=== PATIENT | male | born 1970 | race Caucasian/White ===

== ENCOUNTER 2021-08-15 14:50 | Inpatient (IN) | payer MEDICAID, SELFPAY ==
[2021-08-15] VITALS (25 sets, daily range): BP systolic 112–147; BP diastolic 66–99; PULSE 115–135; RESP 15–31; TEMP 37–37.7; O2SAT 95–98; BMI 29.2
--- NOTE | ~2021-08-15 | XR_ITS ---
EXAMINATION: XR surgery orthopedic EXAM DATE: 08/17/2021 13:40 INDICATION: Right foot osteomyelitis. TECHNIQUE: Fluoroscopy used during right foot surgery performed by Dr. Leighton Bentley JR MD. Rad iologist was not present for the imaging or procedure. Total fluoroscopic time of 2 seconds. The DA P for this procedure was 0.23 cGycm2. A total of 2 images sent to PACS from the exam. Correlation is made to right foot x-ray 08/16. FINDINGS: Status post right 5th metatarsal head and neck amputation. Correlate with procedure note. IMPRESSION: Fluoroscopy used during right foot surgery. Reviewed, dictated and finalized at location B.
--- NOTE | ~2021-08-15 | US_ITS ---
EXAMINATION: US art doppler w press LE DATE: 08/18/2021 14:14 INDICATION: Right foot ulcer. TECHNIQUE: Segmental pressures and plethysmographic and Doppler waveforms of the brachial and lower e xtremity arteries were obtained. COMPARISON: None. FINDINGS: Right and left brachial artery pressures of 139 mm Hg and 143 mm Hg, respectively, are concordant (no rmal difference <= 30 mmHg). The right low-thigh pressure index is 1.32. The right ankle-brachial index (BECKI) is 1.08 (normal >= 0 .9-1.0). The right great toe-brachial index (TBI) is 0.55 (normal >= 0.65). The right lower extremity segmental pressure gradients are normal (normal gradients <= 20-30 mmHg between adjacent levels on t he same leg or the same levels on the two legs). Arterial Doppler waveforms are at least triphasic fr om common femoral artery to popliteal artery and biphasic at the ankle. The left high-thigh pressure index is 1.13. The left BECKI is 1.02. The left TBI is 0.62. The left lowe r extremity segmental pressure gradients are normal. Arterial Doppler waveforms are at least triphasi c in common femoral artery and superficial femoral artery, biphasic in popliteal artery and dorsalis pedis, and triphasic in posterior tibial artery. IMPRESSION: 1. Decreased TBIs and normal ABIs, consistent with arterial occlusive disease. Reviewed, dictated and finalized at location A.
--- NOTE | ~2021-08-15 | MR_ITS ---
EXAMINATION: MR foot RT wo con DATE: 08/16/2021 15:04 INDICATION: Osteomyelitis TECHNIQUE: Magnetic resonance imaging (MRI) of the right fore/mid foot was performed without intraven ous contrast. Sequences included sagittal T1-weighted FSE, sagittal fluid sensitive FSE STIR, coronal PD-weighted FS FSE, coronal T1-weighted FSE, axial PD-weighted FS FSE, and axial PD-weighted FSE. COMPARISON: None FINDINGS: Skin wounds/ulcerations dorsal, lateral and plantar to the head of the fifth metatarsal. There is inc reased T2 signal with corresponding geographic of T1 marrow fat signal at the head and neck of the fi fth metatarsal with cortical erosion evident on the prior radiograph consistent with osteomyelitis. T here is marrow edema at the fifth proximal phalanx with minimal loss of T1 fat signal at the lateral rim of the base of the proximal phalanx also a suggestion of cortical erosion on the prior radiograph s consistent with less advanced osteomyelitis. Additional minimal increased fluid signal at the head of the fourth metatarsal but without loss of T1 fat signal or appreciable erosion on the current radi ograph and favor reactive edema over additional early osteomyelitis. Small low signal intensity likel y bone island at the base of the third proximal phalanx. Mild polyarticular osteoarthritis at the fir st metatarsophalangeal and multiple tarsometatarsal and interphalangeal joints. There is secondary mi ld subarticular cystic change at the dorsolateral margin of the distal articular surface of the later al cuneiform. No fracture. Soft tissue edema about the distal fifth metatarsal and along the dorsal s ubcutaneous tissues of the forefoot. Physiologic amount fluid in the joint spaces. No abscess. IMPRESSION: 1. Osteomyelitis of the head and neck of the fifth metatarsal and less advanced at the base of the fi fth proximal phalanx. 2. Minimal marrow edema at the head of the fourth metatarsal and favor reactive edema over additional very early osteomyelitis. Reviewed, dictated and finalized at location A. IMPRESSION: 1. Osteomyelitis of the head and neck of the fifth metatarsal and less advanced at the base of the fifth proximal phalanx. 2. Minimal marrow edema at the head of the fourth metatarsal and favor reactive edema over additional very early osteomyelitis.
--- NOTE | ~2021-08-15 | XR_ITS ---
EXAMINATION: XR chest PICC line EXAM DATE: 08/24/2021 12:40 INDICATION: Right-sided PICC line placement. TECHNIQUE: Portable AP frontal chest x-ray was obtained. Comparison is made to prior examination from 08/15/2021. FINDINGS: There is a right-sided PICC line with tip projecting over the inferior aspect SVC, adequate . Compared to prior study, development of some prominent right lung interstitial markings, could be mild edema or infection. No confluent consolidation, pneumothorax or pleural effusion suspected. The cardiomediastinal silhouette is prominent but magnified on this AP technique. There are no osseous ab normalities identified. IMPRESSION: Development of some prominent right-sided lung reticulation, could be mild edema. Develop ing interstitial pneumonia not excludable. Reviewed, dictated and finalized at location A. IMPRESSION: Development of some prominent right-sided lung reticulation, could be mild edema. Developing interstitial pneumonia not excludable.
--- NOTE | ~2021-08-15 | XR_ITS ---
EXAMINATION: XR foot RT min 3V DATE: 08/15/2021 17:43 INDICATION: Lateral right foot wound with associated pain, erythema and swelling TECHNIQUE: Dorsoplantar, two oblique and lateral views of the right foot were obtained. COMPARISON: None. FINDINGS: Soft tissue swelling and subcutaneous gas at the lateral aspect of the right forefoot about the regio n of the head of the fifth metatarsal. There appears to be cortical erosions at the plantar aspect of the head of the fifth metacarpal and at the dorsolateral rim of the base of the fifth proximal phala nx suspicious for osteomyelitis. Bone alignment is normal. No fracture. Small Achilles and plantar ca lcaneal spurs. IMPRESSION: 1. Cortical erosions at the head of the fifth metatarsal and base of the fifth proximal phalanx with surrounding soft tissue gas and swelling suspicious for osteomyelitis. Reviewed, dictated and finalized at location A. IMPRESSION: 1. Cortical erosions at the head of the fifth metatarsal and base of the fifth proximal phalanx with surrounding soft tissue gas and swelling suspicious for o steomyelitis.
--- NOTE | ~2021-08-15 | US_ITS ---
EXAMINATION: US venous doppler LE RT EXAM DATE: 08/16/2021 08:08 INDICATION: Right leg edema. TECHNIQUE: Multiple grayscale, color flow and Doppler images of the right lower extremity deep venous system were obtained and reviewed. There is no prior study for comparison. FINDINGS: The right common femoral, femoral and profunda veins demonstrate normal color flow, respira tory variation, augmentation and compressibility. Compressibility, color flow confirmed within the r ight popliteal, posterior tibial, peroneal, and greater saphenous veins. IMPRESSION: 1. No right lower extremity deep venous thrombosis. Reviewed, dictated and finalized at location B.
--- NOTE | ~2021-08-15 | XR_ITS ---
EXAMINATION: XR chest 1V portable DATE: 08/15/2021 17:42 INDICATION: Cough and shortness of breath. TECHNIQUE: frontal view of the chest was obtained. COMPARISON: Chest radiograph dated 04/20/17 FINDINGS: The lungs remain clear with no focal airspace opacities, pulmonary edema, pleural effusion or pneumot horax. The cardiomediastinal silhouette is normal. Mild thoracic spondylosis. IMPRESSION: 1. No acute cardiopulmonary disease. Reviewed, dictated and finalized at location A.
--- NOTE | 2021-08-15 14:58 | ECG_ITS ---
Measurements Intervals [place] Rate: 130 P: 70 [place]: 148 QRS: 74 QRSD: 74 T: 59 QT: 298 QTc: 438 Interpretive Statements SINUS TACHYCARDIA BASELINE ARTIFACT- I, AVL ABNORMAL ECG Electronically Signed On 08-15-2021 15:05:29 CDT by Shashi Martin D.O.
--- NOTE | 2021-08-15 17:43 | ED.GENADULT ---
HPI - General Adult General Chief complaint: Dizziness Stated complaint: Lightheaded/Dizzy Time Seen by Provider: 08/15/21 17:19 History of Present Illness HPI narrative: Patient is a 51-year-old gentleman who presents the emergency department with chief complaint of feeling lightheaded. Patient states that today he started feeling very lightheaded as though he was in a pass out patient reports his heart rate still fast in the 120s denies fever but states that he has had a wound on his right foot that he has been treating by himself patient states he has been doing soaks but has noticed that the wound has been slowly healing but today noticed that his foot is red tender and has a malodorous smell coming from it. Patient denies history of diabetes Related Data Home Medications Medication Instructions Recorded Confirmed No Home Medications 08/15/21 08/15/21 Allergies Allergy/AdvReac Type Severity Reaction Status Date / Time Penicillins Allergy Unknown Hives Verified 08/15/21 17:32 Review of Systems Review of Systems: A 10 system review of systems was completed on the patient and is negative except for what is stated in the HPI. Nursing and ancillary documentation was reviewed. Exam Narrative: GENERAL: Well-appearing, well-nourished, and in no acute distress. HEAD: Normocephalic, atraumatic. EYES: PERRLA and EOMI. ENT: Nares clear, no rhinorrhea or epistaxis. Mucous membranes moist. NECK: Supple. CHEST: Clear to auscultation. No respiratory distress. HEART: Regular rate and rhythm. No murmur heard. Normal peripheral pulses. ABDOMEN: Soft, nontender, nondistended, normal active bowel sounds. EXTREMITIES: Normal range of motion. +1 edema. There is erythema present on the dorsum of the right foot there is an ulceration on the lateral aspect of the right foot with a malodorous smell coming from it SKIN: Warm, dry, no rash. NEURO: No focal deficits. Alert and oriented x3. PSYCH: Normal mood and affect. Course Vital Signs Vital signs: Vital Signs Temperature 37.0 C 08/15/21 14:56 Pulse Rate 129 H 08/15/21 14:56 Respiratory Rate 18 08/15/21 14:56 Blood Pressure 141/76 H 08/15/21 14:56 Pulse Oximetry 97 08/15/21 14:56 Temperature 37.0 C 08/15/21 14:56 Pulse Rate 122 H 08/15/21 17:25 Respiratory Rate 17 08/15/21 17:25 Blood Pressure 147/69 H 08/15/21 17:25 Pulse Oximetry 97 08/15/21 17:25 Medical Decision Making Vital Signs Vital Signs: Vital Signs Temperature 37.0 C 08/15/21 14:56 Pulse Rate 129 H 08/15/21 14:56 Respiratory Rate 18 08/15/21 14:56 Blood Pressure 141/76 H 08/15/21 14:56 Pulse Oximetry 97 08/15/21 14:56 Temperature 37.0 C 08/15/21 14:56 Pulse Rate 122 H 08/15/21 17:25 Respiratory Rate 17 08/15/21 17:25 Blood Pressure 147/69 H 08/15/21 17:25 Pulse Oximetry 97 08/15/21 17:25 Lab Data Result diagrams: 08/15/21 18:22 08/15/21 18:02 Labs: Lab Results 08/15/21 08/15/21 08/15/21 Range/Units 18:02 18:02 18:22 WBC 22.9 H (4.5-10.0) K/mm3 RBC 4.86 (4.6-6.20) M/mm3 Hgb 15.0 (14.0-18.0) g/dL Hct 44.6 (42.0-52.0) % MCV 91.8 (80-100) fl MCH 30.9 (26-34) pg MCHC 33.6 (32-36) g/dl RDW 12.3 (11.5-14.5) % Plt Count 140 L (150-375) k/mm3 MPV 10.5 H (7.4-10.4) fl Immature Gran % (Auto) 0.8 H (0-0.5) % Neut % (Auto) 87.5 H (45.5-73.1) % Lymph % (Auto) 3.6 L (18.3-44.2) % [place] % (Auto) 7.9 (2.6-8.5) % Eos % (Auto) 0.0 (0-4.4) % Baso % (Auto) 0.2 (0.2-1.2) % Lymph # (Auto) 0.83 L (0.9-3.2) K/mm3 [place] # (Auto) 1.8 H (0.1-0.6) K/mm3 Eos # (Auto) 0.0 (0-0.3) K/mm3 Baso # (Auto) 0.1 (0.0-0.1) K/mm3 Abs Immat Gran (auto) 0.19 H (0.00-0.031) K/mm3 Absolute Neuts (auto) 20.0 H (1.3-6.7) K/mm3 Absolute Nucleated RBC 0.0 (0.0-0.012) K/mm3 Nucleated RBC % 0.0 (0.0-0.2) % % Immature Plt Fraction
[2021-08-15 18:27] LABS: Alanine Aminotransferase 26 U/L (4-50); Albumin Level 4.1 g/dL (3.5-5.1); Alkaline Phosphatase 99 U/L (38-126); Anion Gap 14 mmol/L (8-16); Aspartate Amino Transferase 26 U/L (17-59); Bilirubin,Total 1.2 mg/dL (0.2-1.3); Blood Urea Nitrogen 13 mg/dL (9-20); Calcium 8.7 mg/dL (8.4-10.2); Carbon Dioxide 19 mmol/L (22-30); Chloride 99 mmol/L (98-107); Estimated CRCL calculation 97 ml/min; Estimated Glomerular Filt Rate > 60; Glucose 137 mg/dL (65-110); Potassium 3.8 mmol/L (3.4-5.0); Sodium 132 mmol/L (137-145)
[2021-08-15 18:33] LABS: Basophils Absolute Auto 0.1 K/mm3 (0.0-0.1); Basophils Percent Auto 0.2 % (0.2-1.2); Hematocrit 44.6 % (42.0-52.0); Immature Granulocyte Absolute 0.19 K/mm3 (0.00-0.031); Immature Granulocyte Percent A 0.8 % (0-0.5); Lymphocytes Absolute Auto 0.83 K/mm3 (0.9-3.2); Lymphocytes Percent Auto 3.6 % (18.3-44.2); Mean Corpuscular HGB Conc 33.6 g/dl (32-36); Mean Corpuscular Hemoglobin 30.9 pg (26-34); Mean Corpuscular Volume 91.8 fl (80-100); Mean Platelet Volume 10.5 fl (7.4-10.4); Monocytes Absolute Auto 1.8 K/mm3 (0.1-0.6); Monocytes Percent Auto 7.9 % (2.6-8.5); Neutrophils Percent Auto 87.5 % (45.5-73.1); Platelet Count Result 140 k/mm3 (150-375); Red Blood Count 4.86 M/mm3 (4.6-6.20); Red Cell Distribution Width 12.3 % (11.5-14.5); White Blood Count 22.9 K/mm3 (4.5-10.0)
[2021-08-15] MEDS: SODIUM CHLORIDE 0.9% IV 1,000 ML 999 ML IV CONT ×2 (18:39→19:53)
[2021-08-15] MEDS: metroNIDAZOLE 500 MG/ISO 100ML 500 MG/100 ML BAG 100 MG IVPB (18:39)
[2021-08-15 18:41] LABS: Lactic Acid Reflex 1.2 mmol/L (0.7-2.1)
[2021-08-15 18:58] LABS: INR 1.1; Partial Thromboplastin Time 32.7 SECONDS (22.3-36.8); Prothrombin Time 14.2 Seconds (11.1-14.7)
[2021-08-15 19:00] LABS: CRP 18.2 mg/dL (<1.0)
[2021-08-15 19:12] LABS: Erythrocyte Sedimentation Rate 22 mm/hr (0-20)
--- NOTE | 2021-08-15 21:00 | PM.IMHP ---
H&P: HPI History of Present Illness Date/Time: 08/15/21 21:00 Chief Complaint: Lightheadedness. Narrative: This is a 51-year-old male with no significant medical history who presented to the emergency department earlier today for evaluation of lightheadedness. He was in his usual state of health when he got up this morning and sometime this afternoon while at work he suddenly started to feel bad with generalized malaise and dizziness as though he may pass out. He was also having feelings of racing heart. He was afebrile on arrival to the emergency department, was tachycardic, and had a white blood cell count of 22.9. With further questioning he does mention having a wound on his right foot that has been present for several months. He does not recall exactly what happened to it but he thinks it was due to a previous job he had where he was on his feet working for 12 hours a day which caused him to developed a callus which ?split.? He has been keeping the wound clean and has been applying Neosporin daily with reported improvement although over the last 3 days or so he has developed redness and swelling as well as increased drainage. X-ray of the foot showed erosions of the 5th metatarsal head and the base of the 5th proximal phalanx with surrounding soft tissue gas and swelling suspicious for osteomyelitis. No known history of drug-resistant organisms. Again he does not recall any injury to the area and denies puncture wound. He has not had a fever. No nausea or vomiting. Review of Systems Review of Systems: Twelve systems were reviewed with pertinent positives and negatives as per HPI. No cold or flu symptoms. Patient has lost quite a bit of weight since his from heart disease as he is trying to get healthy. He denies chest pain, pleuritic pain, and shortness of breath. No vomiting, diarrhea, or dysuria. No history of diabetes or venous thromboembolism. Except as documented, all other systems were reviewed and are negative. [facility] Past Medical History Medical History (Updated 08/15/21 @ 21:29 by Damaris Solis PA-C) Seasonal allergies Surgical History Surgical History (Updated 08/15/21 @ 21:31 by Damaris Solis PA-C) History of appendectomy (1978) History of surgical removal of ganglion cyst (2000) Right wrist. Family History Family History (Updated 08/15/21 @ 21:30 by Damaris Solis PA-C) Mother Peripheral vascular disease Father Benign brain tumor Sibling Systemic lupus erythematosus Social History Social History (Updated 08/15/21 @ 21:32 by Damaris Solis PA-C) Social History: The patient is and has 1 daughter. He recently purchased a home with his sister. Works for a local [employer]. He smoked about a half a pack of cigarettes a day and quit in 2019. No illicit substance use. Drinks alcohol socially in moderation. He designates his sister, Denise landrum, as his surrogate decision maker. Code status: Full code. Meds Home Medications and Allergies Home Medications Medication Instructions Recorded Confirmed Type No Home Medications 08/15/21 08/15/21 History Allergies Allergy/AdvReac Type Severity Reaction Status Date / Time Penicillins Allergy Unknown Hives Verified 08/15/21 17:32 Vital Signs Vital Signs - 24 hr 08/15/21 14:56 08/15/21 17:05 08/15/21 17:24 Temperature 98.6 F Pulse Rate 129 H 118 H 126 H Respiratory Rate 18 18 Blood Pressure 141/76 H 132/70 Pulse Oximetry 97 96 97 08/15/21 17:25 08/15/21 17:30 08/15/21 17:31 Temperature Pulse Rate 122 H 123 H 120 H Respiratory Rate 17 24 H 19 Blood Pressure 147/69 H 143/75 H Pulse Oximetry 97 96 98 08/15/21 17:45 08/15/21 17:46 08/15/21 18:00 Temperature Pulse Rate 127 H 126 H 119 H Respiratory Rate 16 18 15 Blood Pressure 112/99 H Pulse Oximetry 95 08/15/21 18:15 08/15/21 18:30 08/15/21 18:45 Temperature Pulse Rate 115 H 118 H 120 H Respiratory Rate 17
[2021-08-15] MEDS: SODIUM CHLORIDE 0.9% IV 1,000 ML 80 ML IV CONT (22:24)
[2021-08-16] VITALS (12 sets, daily range): BP systolic 104–133; BP diastolic 62–73; PULSE 87–131; RESP 14–20; TEMP 36.6–37.5; O2SAT 95–98
[2021-08-16] MEDS: ALBUTEROL SULFATE NEB 2.5 MG/3 ML INH INHALATION (00:52)
[2021-08-16 06:23] LABS: Basophils Percent Auto 0.4 % (0.2-1.2); Eosinophils Percent Auto 0.4 % (0-4.4); Hematocrit 40.5 % (42.0-52.0); Hemoglobin 13.3 g/dL (14.0-18.0); Immature Granulocyte Absolute 0.07 K/mm3 (0.00-0.031); Immature Granulocyte Percent A 0.6 % (0-0.5); Immature Platelet Fraction Pct 5.6 % (0.9-11.2); Lymphocytes Absolute Auto 0.92 K/mm3 (0.9-3.2); Lymphocytes Percent Auto 8.1 % (18.3-44.2); Mean Corpuscular HGB Conc 32.8 g/dl (32-36); Mean Corpuscular Hemoglobin 30.6 pg (26-34); Mean Corpuscular Volume 93.3 fl (80-100); Mean Platelet Volume 10.6 fl (7.4-10.4); Monocytes Absolute Auto 1.2 K/mm3 (0.1-0.6); Monocytes Percent Auto 10.3 % (2.6-8.5); Neutrophils Absolute Auto 9.2 K/mm3 (1.3-6.7); Neutrophils Percent Auto 80.2 % (45.5-73.1); Platelet Count Result 99 k/mm3 (150-375); Red Blood Count 4.34 M/mm3 (4.6-6.20); Red Cell Distribution Width 12.1 % (11.5-14.5); White Blood Count 11.4 K/mm3 (4.5-10.0)
[2021-08-16 06:35] LABS: Anion Gap 8 mmol/L (8-16); Blood Urea Nitrogen 10 mg/dL (9-20); Calcium 8.1 mg/dL (8.4-10.2); Carbon Dioxide 23 mmol/L (22-30); Chloride 104 mmol/L (98-107); Estimated CRCL calculation 112 ml/min; Estimated Glomerular Filt Rate > 60; Glucose 112 mg/dL (65-110); Potassium 3.5 mmol/L (3.4-5.0); Sodium 135 mmol/L (137-145)
[2021-08-16] MEDS: LORATADINE 10 MG TABLET PO (11:11)
--- NOTE | 2021-08-16 14:08 | PM.IMPN ---
Progress Note: A&P Assessment and Plan (1) Acute osteomyelitis of right foot: Code(s): M86.171 - Other acute osteomyelitis, right ankle and foot Status: Acute Assessment and Plan: worsening wound on his right lateral foot cellulitis and probable underlying osteomyelitis of the head of the 5th metatarsal and the base of the 5th proximal phalanx. Foot xray showed probable osteomyelitis vancomycin and cefepime, pending culture. Dr. Bentley, podiatry, has been consulted thank you for your recommendations Surgical procedure scheduled for tomorrow Continue to monitor (2) Sepsis: Qualifiers: Sepsis acute organ dysfunction status: without acute organ dysfunction Sepsis type: sepsis due to unspecified organism Qualified Code(s): A41.9 - Sepsis, unspecified organism Code(s): A41.9 - Sepsis, unspecified organism Status: Acute Assessment and Plan: Meets sepsis criteria with tachycardia and leukocytosis in the setting of underlying infection of the right foot. Lactic acid levels within normal limits. Blood pressures are stable. Wound and blood cultures have been obtained and are pending. IV antibiotics With blood cell count 11.4 today Trend labs Labs in a.m. (3) Cellulitis of foot, right: Code(s): L03.115 - Cellulitis of right lower limb Status: Acute Assessment and Plan: See above (4) Allergies: Code(s): T78.40XA - Allergy, unspecified, initial encounter Status: Acute Assessment and Plan: Continue home Claritin Time Spent With Patient Time with patient: Greater than 35 minutes Subjective Date/time seen: 08/16/21 10:30 Interval history: Patient is a 51-year-old male who is here for osteomyelitis of the right foot. Patient stated that he feels okay today. He is unable to really walk on his right foot. He did state that he did have a job sitting behind a desk and never really got up. 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 He states that his job is what caused his foot to break open. He stated that it has been broken for 3-4 days. He has been trying to clean up however is not been sufficient. His leg is swollen and red all the way up to mid calf. Podiatry is on the case and is going to take the patient to surgery tomorrow. Review of Systems Review of Systems: All systems reviewed & are unremarkable except as noted in HPI and below Exam Const: General: cooperative, healthy appearing, comfortable, no acute distress, well developed, alert, awake, ill appearing and tired appearing Nutritional Appearance: well nourished Orientation/consciousness: oriented to person, oriented to place, oriented to time and patient oriented x3 Limitations: physical limitations HENMT: Head: normal to inspection Ears: hearing grossly normal bilaterally General nose exam: Normal external nose present Mouth: Yes Normal oral and palatal mucosa present, Yes lip normal and Yes tongue normal Teeth and gingiva: abnormal tooth and associated gingiva and poor dentition Eyes: General: appearance normal, both eyes and all related structures Neck: Neck: normal visual inspection, full ROM, trachea midline and supple Chest: Chest palpation & inspection: normal inspection of the chest Resp: Effort & Inspection: normal respiratory effort and able to speak in complete sentences Auscultation: clear to auscultation bilaterally Cardio: Jugular venous distension: no JVD Rate: regular rate Rhythm: regular rhythm Heart sounds: S1 normal heart sound present and S2 normal heart sound present Peripheral pulses: Peripheral pulses 2+ throughout GI: Inspection: normal to inspection GI Palp: Yes Soft to palpation and No Tenderness to palpation present (GI) Auscultation: normal bowel sounds Skin: General skin exam: normal color and no rashes or lesions noted Lesions: lesion noted (Plantar side
--- NOTE | 2021-08-16 15:33 | PC.NURSE ---
On 08/16/21, the student, [Katya Mir ], provided care and completed [facility] documentation on this patient. I have reviewed the student's documentation and agree with the findings.
[2021-08-16] MEDS: MUPIROCIN 2% OINT 22 GM TUBE 1 APPLIC TOPICAL (16:15)
[2021-08-16] MEDS: SODIUM CHLORIDE 0.9% IV 1,000 ML 80 ML IV CONT (17:38)
[2021-08-16] MEDS: ACETAMINOPHEN 500 MG TABLET 1000 MG PO (18:53)
--- NOTE | 2021-08-16 19:51 | WPDCN ---
Assessment and Plan Assessment and plan (1) Acute osteomyelitis of right foot: Code(s): M86.171 - Other acute osteomyelitis, right ankle and foot Status: Acute Assessment and Plan: MRI indicates osteomyelitis of distal fifth metatarsal possibly involving proximal phalanx. Continue with IV abx, will require infectious disease consult for abx management upon discharge I will take to the OR 08/17/21 12:30pm for Partial 5th ray resection with pulse lavage and PMMA antibiotic bead packing, the wound will be left open plantarly for daily packing and allow for drainage. Will take deep wound culture swabs Will continue to follow until discharged (2) Cellulitis of foot, right: Code(s): L03.115 - Cellulitis of right lower limb Status: Acute (3) Leukocytosis: Qualifiers: Leukocytosis type: unspecified Qualified Code(s): D72.829 - Elevated white blood cell count, unspecified Code(s): D72.829 - Elevated white blood cell count, unspecified Status: Acute (4) Sepsis: Qualifiers: Sepsis acute organ dysfunction status: without acute organ dysfunction Sepsis type: sepsis due to unspecified organism Qualified Code(s): A41.9 - Sepsis, unspecified organism Code(s): A41.9 - Sepsis, unspecified organism Status: Acute HPI Data of Consult Date/Time: 08/16/21 19:51 Requesting Physician: Julissa Boone MD Primary Care Provider: [employer] PHYSICIAN Consult Narrative Narrative: Hipolito Barney is a 51 year old male with no significant medical history who presented to the emergency department 08/15/21 for evaluation of lightheadedness and heart racing . He woke up feeling normal in the morning and sometime in the afternoon while at work he suddenly started to feel bad with generalized malaise and dizziness as though he may pass out. He was afebrile on arrival to the emergency department, was tachycardic, and had a white blood cell count of 22.9. With further questioning he does mention having a wound on his right foot that has been present for several months. He does not recall exactly what happened to it but he thinks it was due to a previous job he had where he was on his feet working for 12 hours a day which caused him to developed an opne sore to his foot that never healed. He has been keeping the wound clean and has been applying Neosporin daily with reported improvement although over the last 3 days or so he has developed redness and swelling as well as increased drainage. No prior foot wounds, denies diabetes, denies numbness to his feet. . No known history of drug-resistant organisms. He has not had a fever. No nausea or vomiting. Review of Systems Review of Systems: All systems reviewed & are unremarkable except as noted in HPI and below (chart.) [facility] Past Medical History Medical History (Updated 08/16/21 @ 14:17 by DUANE Steiner) Seasonal allergies Surgical History Surgical History (Updated 08/15/21 @ 21:31 by Damaris Solis PA-C) History of appendectomy (1978) History of surgical removal of ganglion cyst (2000) Right wrist. Family History Family History (Updated 08/15/21 @ 21:30 by Damaris Solis PA-C) Mother Peripheral vascular disease Father Benign brain tumor Sibling Systemic lupus erythematosus Social History Social History Social History: The patient is and has 1 daughter. He recently purchased a home with his sister. Works for a local [employer]. He smoked about a half a pack of cigarettes a day and quit in 2019. No illicit substance use. Drinks alcohol socially in moderation. He designates his sister, Denise landrum, as his surrogate decision maker. Code status: Full code. Smoking status: Former smoker Smoking end date: 07/27/20 Alcohol intake: current Substance use: never Substance use type: does not use Spiritual care concerns:
[2021-08-17] VITALS (16 sets, daily range): BP systolic 110–171; BP diastolic 60–104; PULSE 80–134; RESP 16–24; TEMP 36.3–38.1; O2SAT 94–100
[2021-08-17] MEDS: CYCLOBENZAPRINE HCL 5 MG TABLET PO ×2 (04:23→15:29)
[2021-08-17] MEDS: ACETAMINOPHEN 500 MG TABLET 1000 MG PO ×2 (05:01→18:58)
[2021-08-17] MEDS: SODIUM CHLORIDE 0.9% IV 1,000 ML 80 ML IV CONT (05:02)
[2021-08-17 06:45] LABS: Basophils Percent Auto 0.3 % (0.2-1.2); Eosinophils Absolute Auto 0.1 K/mm3 (0-0.3); Eosinophils Percent Auto 0.5 % (0-4.4); Hematocrit 39.3 % (42.0-52.0); Hemoglobin 13.1 g/dL (14.0-18.0); Immature Granulocyte Absolute 0.04 K/mm3 (0.00-0.031); Immature Granulocyte Percent A 0.4 % (0-0.5); Immature Platelet Fraction Pct 5.3 % (0.9-11.2); Lymphocytes Absolute Auto 0.78 K/mm3 (0.9-3.2); Lymphocytes Percent Auto 6.9 % (18.3-44.2); Mean Corpuscular HGB Conc 33.3 g/dl (32-36); Mean Corpuscular Hemoglobin 30.8 pg (26-34); Mean Corpuscular Volume 92.3 fl (80-100); Monocytes Percent Auto 8.6 % (2.6-8.5); Neutrophils Absolute Auto 9.5 K/mm3 (1.3-6.7); Neutrophils Percent Auto 83.3 % (45.5-73.1); Platelet Count Result 106 k/mm3 (150-375); Red Blood Count 4.26 M/mm3 (4.6-6.20); Red Cell Distribution Width 12.3 % (11.5-14.5); White Blood Count 11.3 K/mm3 (4.5-10.0)
[2021-08-17 07:02] LABS: Alanine Aminotransferase 34 U/L (4-50); Albumin Level 3.4 g/dL (3.5-5.1); Alkaline Phosphatase 78 U/L (38-126); Anion Gap 8 mmol/L (8-16); Aspartate Amino Transferase 34 U/L (17-59); Bilirubin,Total 0.8 mg/dL (0.2-1.3); Blood Urea Nitrogen 11 mg/dL (9-20); Calcium 8.6 mg/dL (8.4-10.2); Carbon Dioxide 24 mmol/L (22-30); Chloride 106 mmol/L (98-107); Estimated CRCL calculation 112 ml/min; Estimated Glomerular Filt Rate > 60; Glucose 115 mg/dL (65-110); Magnesium 2.1 mg/dL (1.6-2.3); Potassium 3.6 mmol/L (3.4-5.0); Sodium 138 mmol/L (137-145)
--- NOTE | 2021-08-17 08:16 | P.PNIM_ITS ---
Progress Note: A&P Assessment and Plan (1) Acute osteomyelitis of right foot: Code(s): M86.171 - Other acute osteomyelitis, right ankle and foot Status: Inactive Assessment and Plan: * worsening wound on his right lateral foot * cellulitis and probable underlying osteomyelitis of the head of the 5th metatarsal and the base of the 5th proximal phalanx. * Foot xray showed probable osteomyelitis * vancomycin and cefepime * Wound cultures show no growth * Blood cultures NGTD repeated * Dr. Bentley, podiatry, has been consulted thank you for your recommendations * Surgical procedure scheduled for today * Continue to monitor * ID consult * PT and OT (2) Sepsis: Qualifiers: Sepsis acute organ dysfunction status: without acute organ dysfunction Sepsis type: sepsis due to unspecified organism Qualified Code(s): A41.9 - Sepsis, unspecified organism Code(s): A41.9 - Sepsis, unspecified organism Status: Inactive Assessment and Plan: * Meets sepsis criteria with tachycardia and leukocytosis in the setting of underlying infection of the right foot. * Lactic acid levels within normal limits. * Blood pressures are stable. * Wound culture shows no growth * blood cultures NGTD repeated * IV antibiotics * With blood cell count 11.3 today * Trend labs * Labs in a.m. (3) Cellulitis of foot, right: Code(s): L03.115 - Cellulitis of right lower limb Status: Acute Assessment and Plan: * See above (4) Allergies: Code(s): T78.40XA - Allergy, unspecified, initial encounter Status: Acute Assessment and Plan: * Continue home Claritin (5) Elevated temperature: Code(s): R50.9 - Fever, unspecified Status: Acute Assessment and Plan: * Temp this am is 100.5 * repeat blood cultures * Known infection in leg * Tylenol PRN for high fevers (6) Leukocytosis: Qualifiers: Leukocytosis type: unspecified Qualified Code(s): D72.829 - Elevated white blood cell count, unspecified Code(s): D72.829 - Elevated white blood cell count, unspecified Status: Acute Assessment and Plan: * white blood cell count at admission was 22.9 * white blood cell count trending down and 11.3 today * known source of infection of the right foot * IV antibiotics * blood cultures pending * trend labs * labs in a.m. (7) Back spasm: Code(s): M62.830 - Muscle spasm of back Status: Acute Assessment and Plan: * Complaints of pain and uncomfort of the bed * Flexiril added 5mg PO Q8HR prn (8) Hypertension: Code(s): I10 - Essential (primary) hypertension Status: Acute Assessment and Plan: * Last blood pressure was 171/104 * Could be pain induced * Hydralazine 10mg IV Q4hr PRN * Trend blood pressure * Adjust medications as needed Subjective Date/time seen: 08/17/21 08:16 Interval history: Patient is a 51-year-old male who is here for osteomyelitis of the right foot. patient stated that he has been having diarrhea about 6 times yesterday and times today. He also stated that he has been very uncomfortable because of bed to the point to where he can not get a deep breath. Overnight he had the nurses get him up to the chair and received a muscle relaxer which helped him good decent sleep. When he woke up though he
--- NOTE | 2021-08-17 08:16 | PM.IMPN ---
Progress Note: A&P Assessment and Plan (1) Acute osteomyelitis of right foot: Code(s): M86.171 - Other acute osteomyelitis, right ankle and foot Status: Inactive Assessment and Plan: worsening wound on his right lateral foot cellulitis and probable underlying osteomyelitis of the head of the 5th metatarsal and the base of the 5th proximal phalanx. Foot xray showed probable osteomyelitis vancomycin and cefepime Wound cultures show no growth Blood cultures NGTD repeated Dr. Bentley, podiatry, has been consulted thank you for your recommendations Surgical procedure scheduled for today Continue to monitor ID consult PT and OT (2) Sepsis: Qualifiers: Sepsis acute organ dysfunction status: without acute organ dysfunction Sepsis type: sepsis due to unspecified organism Qualified Code(s): A41.9 - Sepsis, unspecified organism Code(s): A41.9 - Sepsis, unspecified organism Status: Inactive Assessment and Plan: Meets sepsis criteria with tachycardia and leukocytosis in the setting of underlying infection of the right foot. Lactic acid levels within normal limits. Blood pressures are stable. Wound culture shows no growth blood cultures NGTD repeated IV antibiotics With blood cell count 11.3 today Trend labs Labs in a.m. (3) Cellulitis of foot, right: Code(s): L03.115 - Cellulitis of right lower limb Status: Acute Assessment and Plan: See above (4) Allergies: Code(s): T78.40XA - Allergy, unspecified, initial encounter Status: Acute Assessment and Plan: Continue home Claritin (5) Elevated temperature: Code(s): R50.9 - Fever, unspecified Status: Acute Assessment and Plan: Temp this am is 100.5 repeat blood cultures Known infection in leg Tylenol PRN for high fevers (6) Leukocytosis: Qualifiers: Leukocytosis type: unspecified Qualified Code(s): D72.829 - Elevated white blood cell count, unspecified Code(s): D72.829 - Elevated white blood cell count, unspecified Status: Acute Assessment and Plan: white blood cell count at admission was 22.9 white blood cell count trending down and 11.3 today known source of infection of the right foot IV antibiotics blood cultures pending trend labs labs in a.m. (7) Back spasm: Code(s): M62.830 - Muscle spasm of back Status: Acute Assessment and Plan: Complaints of pain and uncomfort of the bed Flexiril added 5mg PO Q8HR prn (8) Hypertension: Code(s): I10 - Essential (primary) hypertension Status: Acute Assessment and Plan: Last blood pressure was 171/104 Could be pain induced Hydralazine 10mg IV Q4hr PRN Trend blood pressure Adjust medications as needed Subjective Date/time seen: 08/17/21 08:16 Interval history: Patient is a 51-year-old male who is here for osteomyelitis of the right foot. patient stated that he has been having diarrhea about 6 times yesterday and times today. He also stated that he has been very uncomfortable because of bed to the point to where he can not get a deep breath. Overnight he had the nurses get him up to the chair and received a muscle relaxer which helped him good decent sleep. When he woke up though he did notice that he was still kind of sore in the bed. He also was noted to have a fever which he did complain about sweats and chills. Patient denied chest pain, fatigue, nausea, vomiting, abdominal pain, numbness and tingling. I did see Dr. Bentley which he stated he was going to get a wound culture while in surgery and he was wondering if ID has been consulted. I also talked about repeat blood cultures from overnight fever. Will consult ID and PT and OT for post surgical intervention. Will also consult to wounds for possible wound VAC after surgery. Antoni
[2021-08-17] MEDS: MUPIROCIN 2% OINT 22 GM TUBE 1 APPLIC TOPICAL (10:23)
[2021-08-17 11:11] LABS: Vancomycin Trough 7.7 ug/mL (10.0-20.0)
[2021-08-17] MEDS: LACTATED RINGERS 1,000 ML 30 ML IV CONT (11:30)
--- NOTE | 2021-08-17 11:48 | WPDANESEPPF ---
Anes - Initial Pre Proc Eval Procedure: Operation Date: 08/17/21 12:30 Proposed Procedures p Partial Fifth Ray Resection of Left Foot - Leighton Bentley JR, MD Date/Time: 08/17/21 11:48 Surgeon: Julissa Boone MD Pre Op Diagnosis: Rt foot Osteomyelitis,Cellulitis,Sepsis,Leukocytos Patient Data Age: 51 Gender: M Height: 1.68 m Weight: 82.1 kg Last Vital Signs Temp 36.8 C 08/17/21 11:22 Pulse 105 H 08/17/21 11:22 Resp 20 08/17/21 11:22 BP 147/80 H 08/17/21 11:22 Pulse Ox 98 08/17/21 11:22 Allergies Allergy/AdvReac Type Severity Reaction Status Date / Time Penicillins Allergy Unknown Hives Verified 08/15/21 17:32 Home Medications Medication Instructions Recorded Confirmed Type Claritin 10 mg PO DAILY 08/15/21 08/15/21 History Laboratory Tests 08/17/21 08/17/21 08/17/21 06:33 06:33 10:00 WBC 11.3 K/mm3 H K/mm3 (4.5-10.0) RBC 4.26 M/mm3 L M/mm3 (4.6-6.20) Hgb 13.1 g/dL L g/dL (14.0-18.0) Hct 39.3 % L % (42.0-52.0) MCV 92.3 fl fl (80-100) MCH 30.8 pg pg (26-34) MCHC 33.3 g/dl g/dl (32-36) RDW 12.3 % % (11.5-14.5) Plt Count 106 k/mm3 L k/mm3 (150-375) MPV 11.0 fl H fl (7.4-10.4) Immature Gran % (Auto) 0.4 % % (0-0.5) Neut % (Auto) 83.3 % H % (45.5-73.1) Lymph % (Auto) 6.9 % L % (18.3-44.2) [place] % (Auto) 8.6 % H % (2.6-8.5) Eos % (Auto) 0.5 % % (0-4.4) Baso % (Auto) 0.3 % % (0.2-1.2) Lymph # (Auto) 0.78 K/mm3 L K/mm3 (0.9-3.2) [place] # (Auto) 1.0 K/mm3 H K/mm3 (0.1-0.6) Eos # (Auto) 0.1 K/mm3 K/mm3 (0-0.3) Baso # (Auto) 0.0 K/mm3 K/mm3 (0.0-0.1) Abs Immat Gran (auto) 0.04 K/mm3 H K/mm3 (0.00-0.031) Absolute Neuts (auto) 9.5 K/mm3 H K/mm3 (1.3-6.7) Absolute Nucleated RBC 0.0 K/mm3 K/mm3 (0.0-0.012) Nucleated RBC % 0.0 % % (0.0-0.2) % Immature Plt Fraction 5.3 % % (0.9-11.2) Sodium 138 mmol/L mmol/L (137-145) Potassium 3.6 mmol/L mmol/L (3.4-5.0) Chloride 106 mmol/L mmol/L (98-107) Carbon Dioxide 24 mmol/L mmol/L (22-30) Anion Gap 8 mmol/L mmol/L (8-16) BUN 11 mg/dL mg/dL (9-20) Creatinine 0.60 mg/dL L mg/dL (0.7-1.3) Estim Creat Clear Calc 112 ml/min ml/min Estimated GFR > 60 (59 - ) Glucose 115 mg/dL H mg/dL (65-110) Calcium 8.6 mg/dL mg/dL (8.4-10.2) Magnesium 2.1 mg/dL mg/dL (1.6-2.3) Total Bilirubin 0.8 mg/dL mg/dL (0.2-1.3) AST 34 U/L U/L (17-59) ALT 34 U/L U/L (4-50) Alkaline Phosphatase 78 U/L U/L (38-126) Total Protein 7.0 g/dL g/dL (6.3-8.2) Albumin 3.4 g/dL L g/dL (3.5-5.1) Vancomycin Trough 7.7 ug/mL L ug/mL (10.0-20.0) Patient hx anesthesia problems: none Family hx anesthesia problems: none PMFSH Past Medical History Medical History Acute osteomyelitis of right foot Seasonal allergies Sepsis Surgical History Surgical History History of appendectomy (1978) History of surgical removal of ganglion cyst (2000) Right wrist. Family History Family History Mother Peripheral vascular disease Father Benign brain tumor Sibling Systemic lupus erythematosus Social History Social History Social History: The patient is and has 1 daughter. He recently purchased a home with his sister. Works for a [employer]. He smoked about a half a pack of cigarettes a day and quit in 2019. No illicit substance use. Drinks alco
[2021-08-17] MEDS: MIDAZOLAM HCL (*CRX) 2 MG/2 ML VIAL IV PUSH (12:03)
--- NOTE | 2021-08-17 12:07 | WPDHPUPDATE1 ---
History and Physical Update Update Date/Time: 08/17/21 12:07 History and Physical has been reviewed, including an updated exam of the patient. There are NO changes in the patient's condition. Risks, benefits, and alternatives have been discussed and questions answered. Patient agrees to proceed with procedure. Diagnosis: Osteomyelitis right foot Procedure: Partial 5th ray resection right foot
[2021-08-17] MEDS: VANCOMYCIN HCL 1,000 MG VIAL 1000 MG TOPICAL (13:07)
[2021-08-17] MEDS: LIDOCAINE HCL 2% PF INJ 5 ML VIAL 10 ML INFILTRATE (13:08)
[2021-08-17] MEDS: BUPIVACAINE HCL 0.5% PF 30 ML VIAL 10 ML INFILTRATE (13:09)
--- NOTE | 2021-08-17 13:37 | PM.OP ---
Procedure Note - Brief Procedure Note - Brief Date of procedure: 08/17/21 Pre-op diagnosis: Rt foot Osteomyelitis,Cellulitis,Sepsis,Leukocytos Post-op diagnosis: same Procedure performed: Partial distal fifth metatasal resection right foot Anesthesia: MAC and local Surgeon: Leighton Bentley JR, DPM Estimated blood loss (mL): 10 Drains: No Packing: Yes Pathology: yes (1. Deep intra op aerobic and anaerobic culture and sensitivity 2. Distal fifth metarsal sent for gross and histo) Complications: No immediate complications Condition: stable Disposition: floor Findings: Significant necrotic tissue about the 5th MPJ with soft distal 5th metatarsal the cartilage cap of the base of the proiximal phlanx was intact with no erosions.
--- NOTE | 2021-08-17 13:46 | PCOTNOTE ---
Attempted OT evaluation, per RN patient is off the unit for procedure, will follow and attempt at later time.
--- NOTE | 2021-08-17 14:03 | SUR.PHASEI ---
[id number] - dr. jernigan at bedside talking with pt
--- NOTE | 2021-08-17 15:16 | PCOTNOTE ---
Waiting for ortho consult for weight baring, nurse informed that pt. is on bedrest orders for 2 days. Will follow up when appropriate.
[2021-08-17] MEDS: LORATADINE 10 MG TABLET PO (15:33)
--- NOTE | 2021-08-17 17:20 | W.PM.PROC2 ---
Procedure Note - Detailed Date of Procedure 08/17/21 Pre-op Diagnosis Rt foot Osteomyelitis,Cellulitis,Sepsis,Leukocytos Post-op Diagnosis same Procedure Performed 1. Incision and debridement of the right foot with resection of the distal fifth metatarsal Surgeon Leighton Bentley JR, DPM Anesthesia MAC and local Description of Procedure Under mild sedation, the patient was brought to the operating room, placed on the operating table in the supine position. A pneumatic ankle tourniquet was placed about the patient's ankle. Following general anesthesia, I performed a proximal fifth metatarsal Borjas Block. The foot was then scrubbed, prepped, and draped in the usual aseptic manner. An Esmarch bandage was then used to examine the patient's foot and pneumatic ankle tourniquet was then inflated. Surgery began in the following manner. Attention was directed to the dorsal lateral aspect of the fifth metatarsal head of the foot where two converging semielliptical incisions were made overlying the distal fifth metatarsal and base of the 5th digit proximal phalanx. There was purulence and snyder nonviable tissue noted as I entered the metatarsal phalangeal joint. At this point a deep wound culture swab was taken and sent for aerobic and anearobic culture and sensitivity. The incision was continued deep down through the subcutaneous tissues using sharp and blunt dissection. All bleeders were cauterized as necessary. All necrotic tissue was excised from the tissue about the head of the 5th metatarsal and articulating base of the proximal phalanx. There seemed to be discoloration and loss of cortical bone the distal fifth metatarsal and articular surface. The distal aspect of the 5th metatarsal was resected with with a sagittal bone saw and past from the operative site and sent for gross and histopathology. The proximal remaining 5th metatarsal was normal. The base of the proximal phalanx was intact with no bone destruction nor articular denudation due to infection. The remaining nonviable infectious tissue was debrided carefully with a rongeur. The entire plantar wound was excised including all nonviable tissue. The affected area was thoroughly lavaged with 3L of sterile saline and a pulse lavage electric powered system. All non bleeding infectious tissue was further excised with a new 15 blade and forceps. I sprinkled 1g of Vancomycin to the wound site both dorsally and plantarly. I reapproximated the proximal portion of the dorsal incision only with 4.0 Prolene in a simple interrupted suture fashion technique. The distal dorsal incision and plantar wound were left open to drain and packed with 1/4 packing gauze. Upon completion of the procedure, the incision was dressed with Adaptic, 4 x 4's, Kerlix, and Coban. The pneumatic ankle tourniquet was then deflated and a prompt hyperemic response noted to all digits of the right foot. A surgical shoe was then applied. The patient did very well with the procedure and the anesthesia. The patient was transferred to the recovery room with vital signs stable and vascular status intact to all remaining toes of the affected foot. Following a period of postoperative monitoring, the patient will be discharged back to the floor with the following written and oral postoperative instructions: 1. Keep the dressing clean, dry, and intact. 2. The patient should use a surgical shoe for ambulation postoperatively. 3. The patient should be on bedrest with bathroom privileges and elevate the affected foot when at rest. 4. Continue with IV antibiotic. 5. I will change the dressing tomorrow morning. Estimated Blood Loss 10 Urine Output 400 Drains No Packing Yes Complications No immediate complications Disposition floor
[2021-08-17 18:06] LABS: Erythrocyte Sedimentation Rate 26 mm/hr (0-20)
[2021-08-18] VITALS: BP 145/74; PULSE 113; RESP 18; TEMP 37.3; O2SAT 94
[2021-08-18] MEDS: ACETAMINOPHEN 500 MG TABLET 1000 MG PO ×2 (01:33→21:15)
[2021-08-18 04:00] VITALS: BP 129/69; PULSE 92; RESP 18; TEMP 36.2; O2SAT 95
[2021-08-18 07:13] LABS: Basophils Percent Auto 0.4 % (0.2-1.2); Eosinophils Absolute Auto 0.2 K/mm3 (0-0.3); Eosinophils Percent Auto 2.3 % (0-4.4); Hematocrit 41.7 % (42.0-52.0); Hemoglobin 13.6 g/dL (14.0-18.0); Immature Granulocyte Absolute 0.03 K/mm3 (0.00-0.031); Immature Granulocyte Percent A 0.4 % (0-0.5); Immature Platelet Fraction Pct 7.3 % (0.9-11.2); Lymphocytes Absolute Auto 1.17 K/mm3 (0.9-3.2); Lymphocytes Percent Auto 13.9 % (18.3-44.2); Mean Corpuscular HGB Conc 32.6 g/dl (32-36); Mean Corpuscular Hemoglobin 31.6 pg (26-34); Mean Platelet Volume 11.4 fl (7.4-10.4); Monocytes Absolute Auto 0.9 K/mm3 (0.1-0.6); Monocytes Percent Auto 10.7 % (2.6-8.5); Neutrophils Absolute Auto 6.1 K/mm3 (1.3-6.7); Neutrophils Percent Auto 72.3 % (45.5-73.1); Platelet Count Result 110 k/mm3 (150-375); Red Cell Distribution Width 12.5 % (11.5-14.5); White Blood Count 8.4 K/mm3 (4.5-10.0)
--- NOTE | 2021-08-18 07:23 | WPDANESPN ---
Anes - Prog Note Post-Op Date/Time: 08/18/21 07:23 Cardiovascular status: normal Respiratory status: normal Airway patency: baseline Mental status: baseline Post-Op hydration status: normal Vital Signs: Last Vital Signs Temp 97.1 F L 08/18/21 04:00 Pulse 92 08/18/21 04:00 Resp 18 08/18/21 04:00 BP 129/69 08/18/21 04:00 Pulse Ox 95 08/18/21 04:00 Pain Score (VAS): 12/05 I/O: Intake & Output 08/17/21 08/17/21 08/18/21 15:59 23:59 07:59 Intake Total 550 1110 950 Output Total 850 1550 Balance 550 260 -600 Laboratory Tests 08/18/21 06:23 08/17/21 08/17/21 08/17/21 10:00 17:25 17:25 WBC RBC Hgb Hct MCV MCH MCHC RDW Plt Count MPV Immature Gran % (Auto) Neut % (Auto) Lymph % (Auto) [place] % (Auto) Eos % (Auto) Baso % (Auto) Lymph # (Auto) [place] # (Auto) Eos # (Auto) Baso # (Auto) Abs Immat Gran (auto) Absolute Neuts (auto) Absolute Nucleated RBC Nucleated RBC % % Immature Plt Fraction ESR 26 H Sodium Potassium Chloride Carbon Dioxide Anion Gap BUN Creatinine Estim Creat Clear Calc Estimated GFR Glucose Calcium Magnesium Total Bilirubin AST ALT Alkaline Phosphatase C-Reactive Protein 19.0 H Total Protein Albumin Vancomycin Trough 7.7 L 08/18/21 08/18/21 08/18/21 06:23 06:23 06:23 WBC 8.4 RBC 4.30 L Hgb 13.6 L Hct 41.7 L MCV 97.0 D MCH 31.6 MCHC 32.6 RDW 12.5 Plt Count 110 L MPV 11.4 H Immature Gran % (Auto) 0.4 Neut % (Auto) 72.3 Lymph % (Auto) 13.9 L [place] % (Auto) 10.7 H Eos % (Auto) 2.3 Baso % (Auto) 0.4 Lymph # (Auto) 1.17 [place] # (Auto) 0.9 H Eos # (Auto) 0.2 Baso # (Auto) 0.0 Abs Immat Gran (auto) 0.03 Absolute Neuts (auto) 6.1 Absolute Nucleated RBC 0.0 Nucleated RBC % 0.0 % Immature Plt Fraction 7.3 ESR Sodium Pending Potassium Pending Chloride Pending Carbon Dioxide Pending Anion Gap Pending BUN Pending Creatinine Pending Cancelled Estim Creat Clear Calc Pending Cancelled Estimated GFR Pending Cancelled Glucose Pending Calcium Pending Magnesium Pending Total Bilirubin Pending AST Pending ALT Pending Alkaline Phosphatase Pending C-Reactive Protein Total Protein Pending Albumin Pending Vancomycin Trough Microbiology 08/15/21 23:00 Foot Right Wound Culture - Preliminary Post-procedural complaints: none Patient Feedback: Patient satisfied with anesthetic care.
[2021-08-18 07:35] LABS: Alanine Aminotransferase 49 U/L (4-50); Albumin Level 3.4 g/dL (3.5-5.1); Alkaline Phosphatase 82 U/L (38-126); Anion Gap 7 mmol/L (8-16); Aspartate Amino Transferase 44 U/L (17-59); Bilirubin,Total 0.7 mg/dL (0.2-1.3); Blood Urea Nitrogen 9 mg/dL (9-20); Calcium 8.6 mg/dL (8.4-10.2); Carbon Dioxide 27 mmol/L (22-30); Chloride 104 mmol/L (98-107); Estimated CRCL calculation 97 ml/min; Estimated Glomerular Filt Rate > 60; Glucose 110 mg/dL (65-110); Magnesium 2.3 mg/dL (1.6-2.3); Potassium 3.8 mmol/L (3.4-5.0); Sodium 138 mmol/L (137-145)
[2021-08-18] MEDS: ENOXAPARIN 40 MG/0.4 ML SYRINGE SUB-Q (09:45)
[2021-08-18] MEDS: LORATADINE 10 MG TABLET PO (09:45)
[2021-08-18] MEDS: SACCHAROMYCES BOULARDII 250 MG CAPSULE PO ×2 (10:31→17:39)
--- NOTE | 2021-08-18 12:57 | WPDINFPN2 ---
Progress Note: A&P Assessment and Plan (1) Cellulitis of foot, right: Code(s): L03.115 - Cellulitis of right lower limb Status: Acute Assessment and Plan: cellulitis, acute osteomyelitis suggested, POD #1 excision REC Ctx #1. Await cultures and histopathology, also get arterial Doppler. Plan once those are resulted. Subjective Date/time seen: 08/18/21 12:57 Objective Data Vital Signs Vital Signs: Vital Signs - 24 hr 08/17/21 13:08 08/17/21 13:09 08/17/21 13:33 Temperature Pulse Rate 89 86 88 Respiratory Rate 20 Blood Pressure 121/80 Pulse Oximetry 100 08/17/21 13:45 08/17/21 14:00 08/17/21 14:10 Temperature Pulse Rate 98 93 90 Respiratory Rate 24 H 22 H 24 H Blood Pressure 136/62 139/94 H 141/86 H Pulse Oximetry 98 97 97 08/17/21 15:13 08/17/21 15:28 08/17/21 16:00 Temperature 36.4 C L 36.3 C L Pulse Rate 134 H 117 H 130 H Respiratory Rate 24 H 20 Blood Pressure 171/104 H 153/82 H Pulse Oximetry 95 94 08/17/21 17:03 08/17/21 20:00 08/18/21 00:00 Temperature 36.8 C 37.3 C Pulse Rate 102 H 113 H Respiratory Rate 16 18 Blood Pressure 115/60 145/74 H Pulse Oximetry 96 96 94 08/18/21 04:00 Temperature 36.2 C L Pulse Rate 92 Respiratory Rate 18 Blood Pressure 129/69 Pulse Oximetry 95 Intake/Output Intake/Output: Intake & Output 08/15/21 08/16/21 08/17/21 08/18/21 23:59 23:59 23:59 23:59 Intake Total 2300 2400 3160 1310 Output Total 1000 1250 1550 Balance 2300 1400 1910 -240 Meds/Results Medications: Active Medications Generic Name Dose Route Start Last Admin Trade Name Freq PRN Reason Stop Dose Admin Acetaminophen 1,000 mg 08/16/21 17:43 08/18/21 01:33 Acetaminophen 500 Mg Tablet PO 1,000 mg Q6H PRN Administration Mild Pain (1-3) or Fever Albuterol 2.5 mg 08/16/21 00:16 08/16/21 00:52 Albuterol Sulfate Neb 2.5 Mg/3 Ml Inh INHALATION 2.5 mg Q6HRT PRN Administration Shortness Of Breath Benzonatate 200 mg 08/16/21 00:16 Benzonatate 100 Mg Capsule PO Q4HR PRN Cough Cyclobenzaprine HCl 5 mg 08/17/21 15:10 08/17/21 15:29 Cyclobenzaprine Hcl 5 Mg Tablet PO 5 mg Q8H PRN Administration Muscle Spasm Enoxaparin Sodium 40 mg 08/16/21 09:00 08/18/21 09:45 Enoxaparin 40 Mg/0.4 Ml Syringe SUB-Q 40 mg DAILY MARIA ANTONIA Administration Hydralazine HCl 10 mg 08/17/21 15:21 Hydralazine Hcl 20 Mg/Ml Vial IV PUSH Q4HR PRN Blood Pressure - High Ceftriaxone Sodium 2 gm in 100 mls @ 200 mls/hr 08/18/21 13:00 Rocephin 2 Gm/D5w 100 Ml IVPB Q24H [facility] Loratadine 10 mg 08/16/21 09:00 08/18/21 09:45 Loratadine 10 Mg Tablet PO 10 mg QAM MARIA ANTONIA Administration Morphine Sulfate 4 mg 08/15/21 19:10 Morphine Sulfate (*Crx) 4 Mg/Ml Inj IV PUSH Q2H PRN Pain Rated 7-10 Mupirocin 1 applic 08/16/21 09:00 08/18/21 09:47 Mupirocin 2% Oint 22 Gm Tube TOPICAL Not Given DAILY [facility] Ondansetron HCl 4 mg 08/15/21 19:10 Ondansetron Inj 4 Mg/2 Ml Vial IV PUSH Q4H PRN Nausea Saccharomyces Boulardii 250 mg 08/18/21 09:00 08/18/21 10:31 Saccharomyces Boulardii 250 Mg Capsule PO 250 mg BID MARIA ANTONIA Administration Radiology Results: ITS Impressions Chest X-Ray 08/15/21 17:46 IMPRESSION: 1. No acute cardiopulmonary disease. Foot X-Ray 08/15/21 17:46 IMPRESSION: 1. Cortical erosions at the head of the fifth metatarsal and base of the fifth proximal phalanx with surrounding soft tissue gas and swelling suspicious for osteomyelitis. Venous Doppler Study 08/16/21 08:21 IMPRESSION: 1. No right lower extremity deep venous thrombosis. Foot MRI 08/16/21 15:18 IMPRESSION: 1. Osteomyelitis of the head and neck of the fifth metatarsal and less advanced at the base of the fifth proximal phalanx. 2. Minimal marrow edema at the head of the fourth metatarsal and favor reactive edema over additional very early ost
[2021-08-18 14:00] VITALS: BP 109/65; PULSE 100; RESP 20; TEMP 36.6; O2SAT 98
--- NOTE | 2021-08-18 14:07 | P.PNIM_ITS ---
Progress Note: A&P Assessment and Plan (1) Acute osteomyelitis of right foot: Code(s): M86.171 - Other acute osteomyelitis, right ankle and foot Status: Inactive Assessment and Plan: * worsening wound on his right lateral foot * cellulitis and probable underlying osteomyelitis of the head of the 5th metatarsal and the base of the 5th proximal phalanx. * Foot xray showed probable osteomyelitis * vancomycin and cefepime changed to Rocephin 2 g q.day * Wound cultures show growth of skin cells * Blood cultures NGTD repeated * Dr. Bentley, podiatry, has been consulted thank you for your recommendations * Surgical procedure 08/17/2021 * Continue to monitor * ID consult thank for recommendations * PT and OT placed on hold * podiatry to manage (2) Sepsis: Qualifiers: Sepsis acute organ dysfunction status: without acute organ dysfunction Sepsis type: sepsis due to unspecified organism Qualified Code(s): A41.9 - Sepsis, unspecified organism Code(s): A41.9 - Sepsis, unspecified organism Status: Inactive Assessment and Plan: * seems to be resolved at this time * Meets sepsis criteria with tachycardia and leukocytosis in the setting of underlying infection of the right foot. * Lactic acid levels within normal limits. * Blood pressures are stable. * Wound culture shows skin cells * blood cultures NGTD repeated * IV antibiotics * With blood cell count 8.8 today * Trend labs * Labs in a.m. (3) Cellulitis of foot, right: Code(s): L03.115 - Cellulitis of right lower limb Status: Acute Assessment and Plan: * See above (4) Allergies: Code(s): T78.40XA - Allergy, unspecified, initial encounter Status: Acute Assessment and Plan: * Continue home Claritin (5) Elevated temperature: Code(s): R50.9 - Fever, unspecified Status: Acute Assessment and Plan: * Temp this am is 36.2 * repeat blood cultures pending * Known infection in leg * Tylenol PRN for high fevers (6) Leukocytosis: Qualifiers: Leukocytosis type: unspecified Qualified Code(s): D72.829 - Elevated white blood cell count, unspecified Code(s): D72.829 - Elevated white blood cell count, unspecified Status: Acute Assessment and Plan: * white blood cell count at admission was 22.9 * white blood cell count trending down and 8.8 today * known source of infection of the right foot * IV antibiotics * blood cultures pending * trend labs * labs in a.m. (7) Back spasm: Code(s): M62.830 - Muscle spasm of back Status: Acute Assessment and Plan: * patient is using more pillows and stated that pain is better especially the shoulder blade and the hip. * Complaints of pain and uncomfort of the bed * Flexiril added 5mg PO Q8HR prn (8) Hypertension: Code(s): I10 - Essential (primary) hypertension Status: Acute Assessment and Plan: * Last blood pressure was 129/69 * Could be pain induced * Hydralazine 10mg IV Q4hr PRN * Trend blood pressure * Adjust medications as needed (9) Peripheral vascular disease: Code(s): I73.9 - Peripheral vascular disease, unspecified Status: Acute Assessment and Plan: * Arterial Dopplers pending * venous Doppler showed no thrombosis * monito
--- NOTE | 2021-08-18 14:07 | PM.IMPN ---
Progress Note: A&P Assessment and Plan (1) Acute osteomyelitis of right foot: Code(s): M86.171 - Other acute osteomyelitis, right ankle and foot Status: Inactive Assessment and Plan: worsening wound on his right lateral foot cellulitis and probable underlying osteomyelitis of the head of the 5th metatarsal and the base of the 5th proximal phalanx. Foot xray showed probable osteomyelitis vancomycin and cefepime changed to Rocephin 2 g q.day Wound cultures show growth of skin cells Blood cultures NGTD repeated Dr. Bentley, podiatry, has been consulted thank you for your recommendations Surgical procedure 08/17/2021 Continue to monitor ID consult thank for recommendations PT and OT placed on hold podiatry to manage (2) Sepsis: Qualifiers: Sepsis acute organ dysfunction status: without acute organ dysfunction Sepsis type: sepsis due to unspecified organism Qualified Code(s): A41.9 - Sepsis, unspecified organism Code(s): A41.9 - Sepsis, unspecified organism Status: Inactive Assessment and Plan: seems to be resolved at this time Meets sepsis criteria with tachycardia and leukocytosis in the setting of underlying infection of the right foot. Lactic acid levels within normal limits. Blood pressures are stable. Wound culture shows skin cells blood cultures NGTD repeated IV antibiotics With blood cell count 8.8 today Trend labs Labs in a.m. (3) Cellulitis of foot, right: Code(s): L03.115 - Cellulitis of right lower limb Status: Acute Assessment and Plan: See above (4) Allergies: Code(s): T78.40XA - Allergy, unspecified, initial encounter Status: Acute Assessment and Plan: Continue home Claritin (5) Elevated temperature: Code(s): R50.9 - Fever, unspecified Status: Acute Assessment and Plan: Temp this am is 36.2 repeat blood cultures pending Known infection in leg Tylenol PRN for high fevers (6) Leukocytosis: Qualifiers: Leukocytosis type: unspecified Qualified Code(s): D72.829 - Elevated white blood cell count, unspecified Code(s): D72.829 - Elevated white blood cell count, unspecified Status: Acute Assessment and Plan: white blood cell count at admission was 22.9 white blood cell count trending down and 8.8 today known source of infection of the right foot IV antibiotics blood cultures pending trend labs labs in a.m. (7) Back spasm: Code(s): M62.830 - Muscle spasm of back Status: Acute Assessment and Plan: patient is using more pillows and stated that pain is better especially the shoulder blade and the hip. Complaints of pain and uncomfort of the bed Flexiril added 5mg PO Q8HR prn (8) Hypertension: Code(s): I10 - Essential (primary) hypertension Status: Acute Assessment and Plan: Last blood pressure was 129/69 Could be pain induced Hydralazine 10mg IV Q4hr PRN Trend blood pressure Adjust medications as needed (9) Peripheral vascular disease: Code(s): I73.9 - Peripheral vascular disease, unspecified Status: Acute Assessment and Plan: Arterial Dopplers pending venous Doppler showed no thrombosis monitor Subjective Date/time seen: 08/18/21 14:07 Interval history: Patient is a 51-year-old male who is here for osteomyelitis of the right foot. patient stated he was having times better today and is only true complaint was the diarrhea. Patient stated that his appetite was better and when he got up this morning he was starving and ate 95% of his breakfast tray. He did walk to the bathroom without any problems however education about weight-bearing and calling for help was given at that time patient did say he was having some sweats however they were little bit better. He a
--- NOTE | 2021-08-18 14:08 | CONS_ITS ---
DATE OF CONSULTATION: 08/18/2021 REASON FOR CONSULTATION: Osteomyelitis. HISTORY OF PRESENT ILLNESS: A 51-year-old male who has had no previous trauma, surgery, or vascular compromise, right lower extremity. He noted an ulcer over the lateral aspect of his right foot about 1 week prior to admission and noted redness moving up the leg followed by palpitations. He presented to the emergency room and was admitted on the . He has been given cefepime and vancomycin and consultation requested. He was taken to the operating room yesterday where he underwent resection of the distal 5th metatarsal. Soft bone was noted. No purulence nor necrosis was encountered. The 5th proximal phalanx was normal to inspection. The patient has been on no antibiotics in the last month for any purpose. No immunosuppressants. Denies fever, chills, sweats. The area has not been painful in general. Postoperatively, he has pain in the operative bed only. ALLERGIES: PENICILLIN CAUSED HIVES AT THE TIME OF HIS APPENDECTOMY IN GRADE SCHO[employer]. PRESENT MEDICATIONS: See above. HABITS: He quit smoking in 2019, half pack per day previously. No alcohol. No illicit drugs. PAST MEDICAL HISTORY: Ganglion cyst removal, seasonal allergies, otherwise negative. FAMILY HISTORY: Not pertinent to his present illness. REVIEW OF SYSTEMS: Constitutional, skin, musculoskeletal, GI, respiratory otherwise negative. SOCIAL HISTORY: . His daughter works, lives locally. PHYSICAL EXAMINATION: GENERAL: Middle-aged male who appears his actual age, in no distress and he appears well. VITAL SIGNS: Temperature on hospital day 3 was 38.1, otherwise afebrile, 92, 18, 129/69, 95% on room air. SKIN: No generalized rashes. Warm and dry. EENT: The pupils are equal, round, and reactive to light. The conjunctivae are normal. Oropharynx, oral mucosa normal. NECK: No masses. LUNGS: Clear to auscultation and percussion. CARDIAC: Regular rate and rhythm. No murmurs or gallops. Dorsalis pedis pulse on the left is trace. His surgical dressing makes it impossible for me to examine vasculature in the right foot. ABDOMEN: No bruits. Nontender. No organomegaly. No masses. EXTREMITIES: As above. He has no erythema, warmth, or tenderness over the mack. Left foot is bland as is the left leg. LABORATORY DATA: Blood cultures, no growth 3 days. Wound culture, mixed nicholas on Gram stain and preliminary culture from the swab shows normal nicholas. From the operating room, no results as yet on the microbiology. On arrival, white count 22.9, is now normalized, hemoglobin 13.6, platelets are 110. Differential is normal. His chemistry panel is entirely normal. CRP was 18.2, then 19.0. RADIOLOGY: Chest x-ray, no active disease. Plain films of the foot on arrival, cortical erosion at the 5th metatarsal and base of the 5th proximal phalanx. MRI suggested the same without abscesses. Venous Doppler normal. ASSESSMENT: 1. Right foot ulcer with imaging and clinical findings suggesting acute osteomyelitis. Skin nicholas suspected. There is no clinical suspicion for pseudomonas, methicillin-resistant Staphylococcus aureus or other multidrug-resistant pathogens. 2. Tobacco abuse in the past. 3. Peripheral vascular disease. RECOMMENDATIONS: 1. Arterial Dopplers. 2. Await histopathology and intraoperative culture. 3. Once the above are resulted, can formulate a plan. 4. Ceftriaxone day 1 for now. CIRILO BRUNO M.D. CHIEF SERVICE DISPATCHER CHIEF SERVICE DISPATCHER D I MT: [facility]
[2021-08-18] MEDS: CYCLOBENZAPRINE HCL 5 MG TABLET PO (21:15)
[2021-08-18 22:00] VITALS: BP 104/64; PULSE 98; RESP 16; TEMP 36.8; O2SAT 97
[2021-08-19 06:00] VITALS: BP 138/80; PULSE 101; RESP 18; TEMP 36.8; O2SAT 98
[2021-08-19 06:30] LABS: Basophils Percent Auto 0.4 % (0.2-1.2); Eosinophils Absolute Auto 0.3 K/mm3 (0-0.3); Eosinophils Percent Auto 3.7 % (0-4.4); Hematocrit 40.7 % (42.0-52.0); Hemoglobin 13.4 g/dL (14.0-18.0); Immature Granulocyte Absolute 0.05 K/mm3 (0.00-0.031); Immature Granulocyte Percent A 0.7 % (0-0.5); Immature Platelet Fraction Pct 5.9 % (0.9-11.2); Lymphocytes Absolute Auto 1.11 K/mm3 (0.9-3.2); Mean Corpuscular HGB Conc 32.9 g/dl (32-36); Mean Corpuscular Hemoglobin 31.2 pg (26-34); Mean Corpuscular Volume 94.9 fl (80-100); Mean Platelet Volume 11.2 fl (7.4-10.4); Monocytes Absolute Auto 0.6 K/mm3 (0.1-0.6); Monocytes Percent Auto 8.8 % (2.6-8.5); Neutrophils Absolute Auto 4.9 K/mm3 (1.3-6.7); Neutrophils Percent Auto 70.4 % (45.5-73.1); Platelet Count Result 134 k/mm3 (150-375); Red Blood Count 4.29 M/mm3 (4.6-6.20); Red Cell Distribution Width 12.4 % (11.5-14.5)
[2021-08-19 06:41] LABS: Alanine Aminotransferase 54 U/L (4-50); Albumin Level 3.4 g/dL (3.5-5.1); Alkaline Phosphatase 78 U/L (38-126); Anion Gap 6 mmol/L (8-16); Aspartate Amino Transferase 38 U/L (17-59); Bilirubin,Total 0.4 mg/dL (0.2-1.3); Blood Urea Nitrogen 11 mg/dL (9-20); Calcium 8.6 mg/dL (8.4-10.2); Carbon Dioxide 27 mmol/L (22-30); Chloride 105 mmol/L (98-107); Estimated CRCL calculation 112 ml/min; Estimated Glomerular Filt Rate > 60; Glucose 110 mg/dL (65-110); Magnesium 2.3 mg/dL (1.6-2.3); Potassium 3.6 mmol/L (3.4-5.0); Sodium 138 mmol/L (137-145)
--- NOTE | 2021-08-19 07:36 | P.PNIM_ITS ---
Progress Note: A&P Assessment and Plan (1) Acute osteomyelitis of right foot: Code(s): M86.171 - Other acute osteomyelitis, right ankle and foot Status: Inactive Assessment and Plan: * worsening wound on his right lateral foot * MRI 08/16/21 osteomyelitis of the head of the 5th metatarsal and the base of the 5th proximal phalanx. * Foot xray showed probable osteomyelitis 08/15/21 * Rocephin 2 g q.day day 2 * Wound cultures show growth of skin cells * Blood cultures NGTD * Dr. Bentley, podiatry, has been consulted thank you for your recommendations * Surgical procedure 08/17/2021 * Continue to monitor * ID consult thank for recommendations * PT and OT placed on hold * podiatry to manage (2) Sepsis: Qualifiers: Sepsis acute organ dysfunction status: without acute organ dysfunction Sepsis type: sepsis due to unspecified organism Qualified Code(s): A41.9 - Sepsis, unspecified organism Code(s): A41.9 - Sepsis, unspecified organism Status: Inactive Assessment and Plan: * seems to be resolved at this time * Meets sepsis criteria with tachycardia and leukocytosis in the setting of underlying infection of the right foot. * Lactic acid levels within normal limits. * Blood pressures are stable. * Wound culture shows skin cells * blood cultures NGTD repeated * IV antibiotics * With blood cell count 7.0 today * Trend labs * Labs in a.m. (3) Cellulitis of foot, right: Code(s): L03.115 - Cellulitis of right lower limb Status: Acute Assessment and Plan: * See above (4) Allergies: Code(s): T78.40XA - Allergy, unspecified, initial encounter Status: Acute Assessment and Plan: * Continue home Claritin (5) Elevated temperature: Code(s): R50.9 - Fever, unspecified Status: Acute Assessment and Plan: * Temp this am is 36.8 * Blood culture show no growth * Known infection in foot * Tylenol PRN for high fevers (6) Leukocytosis: Qualifiers: Leukocytosis type: unspecified Qualified Code(s): D72.829 - Elevated white blood cell count, unspecified Code(s): D72.829 - Elevated white blood cell count, unspecified Status: Acute Assessment and Plan: * white blood cell count at admission was 22.9 * white blood cell count trending down and 7.0 today * known source of infection of the right foot * IV antibiotics * blood cultures NGTD * trend labs * labs in a.m. (7) Back spasm: Code(s): M62.830 - Muscle spasm of back Status: Acute Assessment and Plan: * Seems to be remedied at this time * patient is using more pillows and stated that pain is better especially the shoulder blade and the hip. * Flexiril added 5mg PO Q8HR prn (8) Hypertension: Code(s): I10 - Essential (primary) hypertension Status: Acute Assessment and Plan: * Last blood pressure was 138/80 * Probably for postsurgical pain * Hydralazine 10mg IV Q4hr PRN * Trend blood pressure * Adjust medications as needed (9) Peripheral vascular disease: Code(s): I73.9 - Peripheral vascular disease, unspecified Status: Acute Assessment and Plan: * Arterial Doppler show Decreased TBIs and normal ABIs, consistent with arterial occlusive disease. * venous Doppler showed no thromb
--- NOTE | 2021-08-19 07:36 | PM.IMPN ---
Progress Note: A&P Assessment and Plan (1) Acute osteomyelitis of right foot: Code(s): M86.171 - Other acute osteomyelitis, right ankle and foot Status: Inactive Assessment and Plan: worsening wound on his right lateral foot MRI 08/16/21 osteomyelitis of the head of the 5th metatarsal and the base of the 5th proximal phalanx. Foot xray showed probable osteomyelitis 08/15/21 Rocephin 2 g q.day day 2 Wound cultures show growth of skin cells Blood cultures NGTD Dr. Bentley, podiatry, has been consulted thank you for your recommendations Surgical procedure 08/17/2021 Continue to monitor ID consult thank for recommendations PT and OT placed on hold podiatry to manage (2) Sepsis: Qualifiers: Sepsis acute organ dysfunction status: without acute organ dysfunction Sepsis type: sepsis due to unspecified organism Qualified Code(s): A41.9 - Sepsis, unspecified organism Code(s): A41.9 - Sepsis, unspecified organism Status: Inactive Assessment and Plan: seems to be resolved at this time Meets sepsis criteria with tachycardia and leukocytosis in the setting of underlying infection of the right foot. Lactic acid levels within normal limits. Blood pressures are stable. Wound culture shows skin cells blood cultures NGTD repeated IV antibiotics With blood cell count 7.0 today Trend labs Labs in a.m. (3) Cellulitis of foot, right: Code(s): L03.115 - Cellulitis of right lower limb Status: Acute Assessment and Plan: See above (4) Allergies: Code(s): T78.40XA - Allergy, unspecified, initial encounter Status: Acute Assessment and Plan: Continue home Claritin (5) Elevated temperature: Code(s): R50.9 - Fever, unspecified Status: Acute Assessment and Plan: Temp this am is 36.8 Blood culture show no growth Known infection in foot Tylenol PRN for high fevers (6) Leukocytosis: Qualifiers: Leukocytosis type: unspecified Qualified Code(s): D72.829 - Elevated white blood cell count, unspecified Code(s): D72.829 - Elevated white blood cell count, unspecified Status: Acute Assessment and Plan: white blood cell count at admission was 22.9 white blood cell count trending down and 7.0 today known source of infection of the right foot IV antibiotics blood cultures NGTD trend labs labs in a.m. (7) Back spasm: Code(s): M62.830 - Muscle spasm of back Status: Acute Assessment and Plan: Seems to be remedied at this time patient is using more pillows and stated that pain is better especially the shoulder blade and the hip. Flexiril added 5mg PO Q8HR prn (8) Hypertension: Code(s): I10 - Essential (primary) hypertension Status: Acute Assessment and Plan: Last blood pressure was 138/80 Probably for postsurgical pain Hydralazine 10mg IV Q4hr PRN Trend blood pressure Adjust medications as needed (9) Peripheral vascular disease: Code(s): I73.9 - Peripheral vascular disease, unspecified Status: Acute Assessment and Plan: Arterial Doppler show Decreased TBIs and normal ABIs, consistent with arterial occlusive disease. venous Doppler showed no thrombosis monitor (10) Elevated liver enzymes: Code(s): R74.8 - Abnormal levels of other serum enzymes Status: Acute Assessment and Plan: ALT trending up ALT today is 54 Probably related to infection Trend labs consider hepatitis panel and or right upper quad ultrasound if indicated Subjective Date/time seen: 08/19/21 07:36 Interval history: Patient is a 51-year-old male who is here for osteomyelitis of the right foot. Patient states he is doing a lot better today. He also stated that he has been able to get up to the chair without any
[2021-08-19] MEDS: LORATADINE 10 MG TABLET PO (08:32)
[2021-08-19] MEDS: SACCHAROMYCES BOULARDII 250 MG CAPSULE PO ×2 (08:32→17:19)
[2021-08-19] MEDS: ENOXAPARIN 40 MG/0.4 ML SYRINGE SUB-Q (08:32)
[2021-08-19 08:35] LABS: Lactate Dehydrogenase 306 U/L (313-618)
[2021-08-19 14:00] VITALS: BP 144/81; PULSE 111; RESP 20; TEMP 36.6; O2SAT 97
--- NOTE | 2021-08-19 15:17 | PCPTNOTE ---
On 08/19/21, the student, Titus Morgan SPT provided care and completed mokono documentation on this patient. I have reviewed the student's documentation and agree with the findings.
--- NOTE | 2021-08-19 16:36 | WPDPN ---
Progress Note: A&P Additional Plan Septic 5th metatarsal phalangeal joint with osteomyelitis of the 5th metatarsal head and likely proximal phalanx of the 5th digit -Home health will be requested for dressing changes with 1/4 iodoform gauze, 4x4 gauze, Kerlix and TAMERA wrap to be changed 3x week, the patients sister and friend both RNs will change the dressing the remaining days. -Follow up in my office 3 days after discharge for follow up viist. Continue with minimal protected weight bearing with surgical shoe. - Showers with Cast protector bag to avoid getting right foot wet -Due to deep bone infection to the metatarsal head and proximal phalanx the patient will likely undergo IV abx treatment per ID appreciate recommendations Dr. Bentley Subjective Date/time seen: 08/19/21 16:36 Patient seen at bedside resting comfortably. No F/C/N/V/ SOB/ Calf pain. Denies foot pain. Exam Extrem: Other: Dorsal and plantar wound appear to be granulating, positive sanguineous drainage noted. Significantly decreased edema and erythema to the right foot. No purulence noted. CFT is immediate to the lesser digits of the right foot including the 5th digit. Objective Data Vital Signs Vital Signs: Vital Signs - 24 hr 08/18/21 22:00 08/19/21 06:00 08/19/21 14:00 Temperature 36.8 C 36.8 C 36.6 C Pulse Rate 98 101 H 111 H Respiratory Rate 16 18 20 Blood Pressure 104/64 138/80 144/81 H Pulse Oximetry 97 98 97 Intake/Output Intake/Output: Intake & Output 08/16/21 08/17/21 08/18/21 08/19/21 23:59 23:59 23:59 23:59 Intake Total 2400 3160 2200 940 Output Total 1000 1250 1550 500 Balance 1400 1910 650 440 Meds/Results Medications: Active Medications Generic Name Dose Route Start Last Admin Trade Name Freq PRN Reason Stop Dose Admin Acetaminophen 1,000 mg 08/16/21 17:43 08/18/21 21:15 Acetaminophen 500 Mg Tablet PO 1,000 mg Q6H PRN Administration Mild Pain (1-3) or Fever Albuterol 2.5 mg 08/16/21 00:16 08/16/21 00:52 Albuterol Sulfate Neb 2.5 Mg/3 Ml Inh INHALATION 2.5 mg Q6HRT PRN Administration Shortness Of Breath Benzonatate 200 mg 08/16/21 00:16 Benzonatate 100 Mg Capsule PO Q4HR PRN Cough Cyclobenzaprine HCl 5 mg 08/17/21 15:10 08/18/21 21:15 Cyclobenzaprine Hcl 5 Mg Tablet PO 5 mg Q8H PRN Administration Muscle Spasm Enoxaparin Sodium 40 mg 08/16/21 09:00 08/19/21 08:32 Enoxaparin 40 Mg/0.4 Ml Syringe SUB-Q 40 mg DAILY MARIA ANTONIA Administration Hydralazine HCl 10 mg 08/17/21 15:21 Hydralazine Hcl 20 Mg/Ml Vial IV PUSH Q4HR PRN Blood Pressure - High Ceftriaxone Sodium 2 gm in 100 mls @ 200 mls/hr 08/18/21 13:00 08/19/21 09:35 Rocephin 2 Gm/D5w 100 Ml IVPB Infused QAM MARIA ANTONIA Infusion Loratadine 10 mg 08/16/21 09:00 08/19/21 08:32 Loratadine 10 Mg Tablet PO 10 mg QAM MARIA ANTONIA Administration Morphine Sulfate 4 mg 08/15/21 19:10 Morphine Sulfate (*Crx) 4 Mg/Ml Inj IV PUSH Q2H PRN Pain Rated 7-10 Ondansetron HCl 4 mg 08/15/21 19:10 Ondansetron Inj 4 Mg/2 Ml Vial IV PUSH Q4H PRN Nausea Saccharomyces Boulardii 250 mg 08/18/21 09:00 08/19/21 08:32 Saccharomyces Boulardii 250 Mg Capsule PO 250 mg BID MARIA ANTONIA Administration Radiology Results: ITS Impressions Chest X-Ray 08/15/21 17:46 IMPRESSION: 1. No acute cardiopulmonary disease. Foot X-Ray 08/15/21 17:46 IMPRESSION: 1. Cortical erosions at the head of the fifth metatarsal and base of the fifth proximal phalanx with surrounding soft tissue gas and swelling suspicious for osteomyelitis. Venous Doppler Study 08/16/21 08:21 IMPRESSION: 1. No right lower extremity deep venous thrombosis. Foot MRI 08/16/21 15:18 IMPRESSION: 1. Osteomyelitis of the head and neck of the fifth metatarsal and less advanced at the base of the fifth proximal phalanx. 2. Minimal marrow edema at the head of the fourth metatarsal and
[2021-08-19] MEDS: ACETAMINOPHEN 500 MG TABLET 1000 MG PO (20:54)
[2021-08-19] MEDS: CYCLOBENZAPRINE HCL 5 MG TABLET PO (20:54)
[2021-08-19 21:42] VITALS: BP 136/70; PULSE 103; RESP 18; TEMP 36.6; O2SAT 95
[2021-08-20 05:40] VITALS: BP 165/94; PULSE 95; RESP 18; TEMP 36.7; O2SAT 96
[2021-08-20 06:46] LABS: Basophils Percent Auto 0.5 % (0.2-1.2); Eosinophils Absolute Auto 0.2 K/mm3 (0-0.3); Eosinophils Percent Auto 3.7 % (0-4.4); Hematocrit 41.6 % (42.0-52.0); Hemoglobin 13.6 g/dL (14.0-18.0); Immature Granulocyte Absolute 0.05 K/mm3 (0.00-0.031); Immature Granulocyte Percent A 0.8 % (0-0.5); Immature Platelet Fraction Pct 4.7 % (0.9-11.2); Lymphocytes Absolute Auto 0.94 K/mm3 (0.9-3.2); Lymphocytes Percent Auto 15.9 % (18.3-44.2); Mean Corpuscular HGB Conc 32.7 g/dl (32-36); Mean Corpuscular Hemoglobin 31.1 pg (26-34); Mean Corpuscular Volume 95.2 fl (80-100); Mean Platelet Volume 10.9 fl (7.4-10.4); Monocytes Absolute Auto 0.5 K/mm3 (0.1-0.6); Monocytes Percent Auto 8.8 % (2.6-8.5); Neutrophils Absolute Auto 4.2 K/mm3 (1.3-6.7); Neutrophils Percent Auto 70.3 % (45.5-73.1); Platelet Count Result 145 k/mm3 (150-375); Red Blood Count 4.37 M/mm3 (4.6-6.20); Red Cell Distribution Width 12.3 % (11.5-14.5); White Blood Count 5.9 K/mm3 (4.5-10.0)
[2021-08-20 07:11] LABS: Alanine Aminotransferase 62 U/L (4-50); Albumin Level 3.5 g/dL (3.5-5.1); Alkaline Phosphatase 77 U/L (38-126); Anion Gap 7 mmol/L (8-16); Aspartate Amino Transferase 40 U/L (17-59); Bilirubin,Total 0.4 mg/dL (0.2-1.3); Blood Urea Nitrogen 9 mg/dL (9-20); Calcium 8.6 mg/dL (8.4-10.2); Carbon Dioxide 26 mmol/L (22-30); Chloride 105 mmol/L (98-107); Estimated CRCL calculation 132 ml/min; Estimated Glomerular Filt Rate > 60; Glucose 108 mg/dL (65-110); Magnesium 2.2 mg/dL (1.6-2.3); Potassium 3.8 mmol/L (3.4-5.0); Sodium 138 mmol/L (137-145)
--- NOTE | 2021-08-20 07:41 | P.PNIM_ITS ---
Progress Note: A&P Assessment and Plan (1) Acute osteomyelitis of right foot: Code(s): M86.171 - Other acute osteomyelitis, right ankle and foot Status: Inactive Assessment and Plan: * worsening wound on his right lateral foot * MRI 08/16/21 osteomyelitis of the head of the 5th metatarsal and the base of the 5th proximal phalanx. * Foot xray showed probable osteomyelitis 08/15/21 * Rocephin 2 g q.day day 3 * Wound cultures show ISOLATE 1:Peptostreptococcus anaerobiua ISOLATE 2:Prevotella bivia * Blood cultures NGTD * Dr. Bentley, podiatry, DC instructions--Follow up 3 days post DC, minimal wt. bearing, Showers with cast protection * Surgical procedure 08/17/2021 * Continue to monitor * ID consult thank for recommendations * PT and OT resumed * podiatry to manage * Home health requested for dressing changes with 1/4 iodoform gauze, 4x4 gauze, Kerlix and TAMERA wrap to be changed 3x week, sister and friend both RNs will change the dressing the remaining days. * Can be discharged will wait for ID antibiotic recommendations. Called [facility] about sensitivities: ISOLATE 1: Peptostreptococcus anaerobius-no sensitivities are ran for this bacteria ISOLATE 2: Prevotella bivia- Had to be sent out for further testing (2) Sepsis: Qualifiers: Sepsis acute organ dysfunction status: without acute organ dysfunction Sepsis type: sepsis due to unspecified organism Qualified Code(s): A41.9 - Sepsis, unspecified organism Code(s): A41.9 - Sepsis, unspecified organism Status: Inactive Assessment and Plan: * seems to be resolved at this time * Meets sepsis criteria with tachycardia and leukocytosis in the setting of underlying infection of the right foot. * Lactic acid levels within normal limits. * Blood pressures are stable. * Wound culture shows skin cells * blood cultures NGTD repeated * IV antibiotics * With blood cell count 5.9 today * Trend labs * Labs in a.m. (3) Cellulitis of foot, right: Code(s): L03.115 - Cellulitis of right lower limb Status: Acute Assessment and Plan: * See above (4) Allergies: Code(s): T78.40XA - Allergy, unspecified, initial encounter Status: Acute Assessment and Plan: * Continue home Claritin (5) Elevated temperature: Code(s): R50.9 - Fever, unspecified Status: Acute Assessment and Plan: * Temp this am is 36.7C * Blood culture show no growth * Known infection in foot * Tylenol PRN for high fevers (6) Leukocytosis: Qualifiers: Leukocytosis type: unspecified Qualified Code(s): D72.829 - Elevated white blood cell count, unspecified Code(s): D72.829 - Elevated white blood cell count, unspecified Status: Acute Assessment and Plan: * white blood cell count at admission was 22.9 * white blood cell count trending down and 5.9 today * known source of infection of the right foot * IV antibiotics * blood cultures NGTD * trend labs * labs in a.m. (7) Back spasm: Code(s): M62.830 - Muscle spasm of back Status: Acute Assessment and Plan: * Seems to be remedied at this time * patient is using more pillows and stated that pain is better especially the shoulder blade and the hip. * Flexiril added 5mg PO Q8HR prn (8) Hypertension: Code(s): I10 - Essential (primary) hypertension Stat
--- NOTE | 2021-08-20 07:41 | PM.IMPN ---
Progress Note: A&P Assessment and Plan (1) Acute osteomyelitis of right foot: Code(s): M86.171 - Other acute osteomyelitis, right ankle and foot Status: Inactive Assessment and Plan: worsening wound on his right lateral foot MRI 08/16/21 osteomyelitis of the head of the 5th metatarsal and the base of the 5th proximal phalanx. Foot xray showed probable osteomyelitis 08/15/21 Rocephin 2 g q.day day 3 Wound cultures show ISOLATE 1:Peptostreptococcus anaerobiua ISOLATE 2:Prevotella bivia Blood cultures NGTD Dr. Bentley, podiatry, DC instructions--Follow up 3 days post DC, minimal wt. bearing, Showers with cast protection Surgical procedure 08/17/2021 Continue to monitor ID consult thank for recommendations PT and OT resumed podiatry to manage Home health requested for dressing changes with 1/4 iodoform gauze, 4x4 gauze, Kerlix and TAMERA wrap to be changed 3x week, sister and friend both RNs will change the dressing the remaining days. Can be discharged will wait for ID antibiotic recommendations. Called [facility] about sensitivities: ISOLATE 1: Peptostreptococcus anaerobius-no sensitivities are ran for this bacteria ISOLATE 2: Prevotella bivia- Had to be sent out for further testing (2) Sepsis: Qualifiers: Sepsis acute organ dysfunction status: without acute organ dysfunction Sepsis type: sepsis due to unspecified organism Qualified Code(s): A41.9 - Sepsis, unspecified organism Code(s): A41.9 - Sepsis, unspecified organism Status: Inactive Assessment and Plan: seems to be resolved at this time Meets sepsis criteria with tachycardia and leukocytosis in the setting of underlying infection of the right foot. Lactic acid levels within normal limits. Blood pressures are stable. Wound culture shows skin cells blood cultures NGTD repeated IV antibiotics With blood cell count 5.9 today Trend labs Labs in a.m. (3) Cellulitis of foot, right: Code(s): L03.115 - Cellulitis of right lower limb Status: Acute Assessment and Plan: See above (4) Allergies: Code(s): T78.40XA - Allergy, unspecified, initial encounter Status: Acute Assessment and Plan: Continue home Claritin (5) Elevated temperature: Code(s): R50.9 - Fever, unspecified Status: Acute Assessment and Plan: Temp this am is 36.7C Blood culture show no growth Known infection in foot Tylenol PRN for high fevers (6) Leukocytosis: Qualifiers: Leukocytosis type: unspecified Qualified Code(s): D72.829 - Elevated white blood cell count, unspecified Code(s): D72.829 - Elevated white blood cell count, unspecified Status: Acute Assessment and Plan: white blood cell count at admission was 22.9 white blood cell count trending down and 5.9 today known source of infection of the right foot IV antibiotics blood cultures NGTD trend labs labs in a.m. (7) Back spasm: Code(s): M62.830 - Muscle spasm of back Status: Acute Assessment and Plan: Seems to be remedied at this time patient is using more pillows and stated that pain is better especially the shoulder blade and the hip. Flexiril added 5mg PO Q8HR prn (8) Hypertension: Code(s): I10 - Essential (primary) hypertension Status: Acute Assessment and Plan: Last blood pressure was 165/94 Probably for postsurgical pain Lisinopril 5mg PO daily Hydralazine 10mg IV Q4hr PRN Trend blood pressure Adjust medications as needed (9) Peripheral vascular disease: Code(s): I73.9 - Peripheral vascular disease, unspecified Status: Acute Assessment and Plan: Arterial Doppler show Decreased TBIs and normal ABIs, consistent with arterial occlusive disease. venous Doppler showed no thrombosis monitor (10) Elevated liver enzym
[2021-08-20] MEDS: ENOXAPARIN 40 MG/0.4 ML SYRINGE SUB-Q (08:26)
[2021-08-20] MEDS: LORATADINE 10 MG TABLET PO (08:27)
[2021-08-20] MEDS: SACCHAROMYCES BOULARDII 250 MG CAPSULE PO ×2 (08:27→17:22)
[2021-08-20] MEDS: lisinopriL 5 MG TABLET PO (08:36)
[2021-08-20 08:48] LABS: Hepatitis B Surface Antigen Negative (Negative)
[2021-08-20 08:53] LABS: HAV RESULT Negative (Negative); Hepatitis B Core IgM Result Negative (Negative)
[2021-08-20 09:05] LABS: Hepatitis C Virus Antibody Negative (Negative)
[2021-08-20 14:00] VITALS: BP 140/82; PULSE 95; RESP 20; TEMP 37; O2SAT 98
[2021-08-20] MEDS: CYCLOBENZAPRINE HCL 5 MG TABLET PO (21:03)
[2021-08-20] MEDS: ACETAMINOPHEN 500 MG TABLET 1000 MG PO (21:03)
[2021-08-20 21:51] VITALS: BP 150/81; PULSE 105; RESP 18; TEMP 37.1; O2SAT 97
[2021-08-21 05:44] VITALS: BP 145/95; PULSE 88; RESP 18; TEMP 36.3; O2SAT 95
[2021-08-21 07:03] LABS: Basophils Percent Auto 0.8 % (0.2-1.2); Eosinophils Absolute Auto 0.2 K/mm3 (0-0.3); Eosinophils Percent Auto 4.7 % (0-4.4); Hematocrit 40.6 % (42.0-52.0); Hemoglobin 13.5 g/dL (14.0-18.0); Immature Granulocyte Absolute 0.06 K/mm3 (0.00-0.031); Immature Granulocyte Percent A 1.2 % (0-0.5); Lymphocytes Absolute Auto 1.16 K/mm3 (0.9-3.2); Lymphocytes Percent Auto 22.7 % (18.3-44.2); Mean Corpuscular HGB Conc 33.3 g/dl (32-36); Mean Corpuscular Hemoglobin 30.3 pg (26-34); Mean Platelet Volume 10.4 fl (7.4-10.4); Monocytes Absolute Auto 0.5 K/mm3 (0.1-0.6); Neutrophils Absolute Auto 3.1 K/mm3 (1.3-6.7); Neutrophils Percent Auto 60.6 % (45.5-73.1); Platelet Count Result 156 k/mm3 (150-375); Red Blood Count 4.46 M/mm3 (4.6-6.20); Red Cell Distribution Width 12.1 % (11.5-14.5); White Blood Count 5.1 K/mm3 (4.5-10.0)
[2021-08-21 07:38] LABS: Alanine Aminotransferase 62 U/L (4-50); Albumin Level 3.4 g/dL (3.5-5.1); Alkaline Phosphatase 74 U/L (38-126); Anion Gap 4 mmol/L (8-16); Aspartate Amino Transferase 50 U/L (17-59); Bilirubin,Total 0.3 mg/dL (0.2-1.3); Blood Urea Nitrogen 10 mg/dL (9-20); Calcium 8.7 mg/dL (8.4-10.2); Carbon Dioxide 31 mmol/L (22-30); Chloride 105 mmol/L (98-107); Estimated CRCL calculation 112 ml/min; Estimated Glomerular Filt Rate > 60; Glucose 106 mg/dL (65-110); Magnesium 2.4 mg/dL (1.6-2.3); Potassium 3.8 mmol/L (3.4-5.0); Sodium 140 mmol/L (137-145)
[2021-08-21] MEDS: ENOXAPARIN 40 MG/0.4 ML SYRINGE SUB-Q (09:18)
[2021-08-21] MEDS: lisinopriL 5 MG TABLET PO (09:18)
[2021-08-21] MEDS: LORATADINE 10 MG TABLET PO (09:19)
[2021-08-21] MEDS: SACCHAROMYCES BOULARDII 250 MG CAPSULE PO ×2 (09:19→17:32)
--- NOTE | 2021-08-21 12:57 | P.PNIM_ITS ---
Progress Note: A&P Assessment and Plan (1) Acute osteomyelitis of right foot: Code(s): M86.171 - Other acute osteomyelitis, right ankle and foot Status: Inactive Assessment and Plan: * worsening wound on his right lateral foot * MRI 08/16/21 osteomyelitis of the head of the 5th metatarsal and the base of the 5th proximal phalanx. * Foot xray showed probable osteomyelitis 08/15/21 * Rocephin 2 g q.day day 4 * Wound cultures show ISOLATE 1:Peptostreptococcus anaerobiua ISOLATE 2:Prevotella bivia * Blood cultures NGTD * Dr. Bentley, podiatry, DC instructions--Follow up 3 days post DC, minimal wt. bearing, Showers with cast protection * Surgical procedure 08/17/2021 * Continue to monitor * ID consult thank for recommendations * PT and OT resumed * podiatry to manage * Home health requested for dressing changes with 1/4 iodoform gauze, 4x4 gauze, Kerlix and TAMERA wrap to be changed 3x week, sister and friend both RNs will change the dressing the remaining days. * Can be discharged will wait for ID antibiotic recommendations. Called ID today who recommended waiting on the discharge. (2) Sepsis: Qualifiers: Sepsis acute organ dysfunction status: without acute organ dysfunction Sepsis type: sepsis due to unspecified organism Qualified Code(s): A41.9 - Sepsis, unspecified organism Code(s): A41.9 - Sepsis, unspecified organism Status: Inactive Assessment and Plan: * seems to be resolved at this time * Meets sepsis criteria with tachycardia and leukocytosis in the setting of underlying infection of the right foot. * Lactic acid levels within normal limits. * Blood pressures are stable. * Wound culture shows skin cells * blood cultures NGTD repeated * IV antibiotics * With blood cell count 5.1 today * Trend labs * Labs in a.m. (3) Cellulitis of foot, right: Code(s): L03.115 - Cellulitis of right lower limb Status: Acute Assessment and Plan: * See above (4) Allergies: Code(s): T78.40XA - Allergy, unspecified, initial encounter Status: Acute Assessment and Plan: * Continue home Claritin (5) Elevated temperature: Code(s): R50.9 - Fever, unspecified Status: Acute Assessment and Plan: * Temp this am is 36.3C * Blood culture show no growth * Known infection in foot * Tylenol PRN for high fevers (6) Leukocytosis: Qualifiers: Leukocytosis type: unspecified Qualified Code(s): D72.829 - Elevated white blood cell count, unspecified Code(s): D72.829 - Elevated white blood cell count, unspecified Status: Acute Assessment and Plan: * white blood cell count at admission was 22.9 * white blood cell count trending down and 5.1 today * known source of infection of the right foot * IV antibiotics * blood cultures NGTD * trend labs * labs in a.m. (7) Back spasm: Code(s): M62.830 - Muscle spasm of back Status: Acute Assessment and Plan: * Seems to be remedied at this time * patient is using more pillows and stated that pain is better especially the shoulder blade and the hip. * Flexiril added 5mg PO Q8HR prn (8) Hypertension: Code(s): I10 - Essential (primary) hypertension Status: Acute Assessment and Plan: * Last blood pressure was 145/95 * Probably for postsurgical pain * Lisinopril
--- NOTE | 2021-08-21 12:57 | PM.IMPN ---
Progress Note: A&P Assessment and Plan (1) Acute osteomyelitis of right foot: Code(s): M86.171 - Other acute osteomyelitis, right ankle and foot Status: Inactive Assessment and Plan: worsening wound on his right lateral foot MRI 08/16/21 osteomyelitis of the head of the 5th metatarsal and the base of the 5th proximal phalanx. Foot xray showed probable osteomyelitis 08/15/21 Rocephin 2 g q.day day 4 Wound cultures show ISOLATE 1:Peptostreptococcus anaerobiua ISOLATE 2:Prevotella bivia Blood cultures NGTD Dr. Bentley, podiatry, DC instructions--Follow up 3 days post DC, minimal wt. bearing, Showers with cast protection Surgical procedure 08/17/2021 Continue to monitor ID consult thank for recommendations PT and OT resumed podiatry to manage Home health requested for dressing changes with 1/4 iodoform gauze, 4x4 gauze, Kerlix and TAMERA wrap to be changed 3x week, sister and friend both RNs will change the dressing the remaining days. Can be discharged will wait for ID antibiotic recommendations. Called ID today who recommended waiting on the discharge. (2) Sepsis: Qualifiers: Sepsis acute organ dysfunction status: without acute organ dysfunction Sepsis type: sepsis due to unspecified organism Qualified Code(s): A41.9 - Sepsis, unspecified organism Code(s): A41.9 - Sepsis, unspecified organism Status: Inactive Assessment and Plan: seems to be resolved at this time Meets sepsis criteria with tachycardia and leukocytosis in the setting of underlying infection of the right foot. Lactic acid levels within normal limits. Blood pressures are stable. Wound culture shows skin cells blood cultures NGTD repeated IV antibiotics With blood cell count 5.1 today Trend labs Labs in a.m. (3) Cellulitis of foot, right: Code(s): L03.115 - Cellulitis of right lower limb Status: Acute Assessment and Plan: See above (4) Allergies: Code(s): T78.40XA - Allergy, unspecified, initial encounter Status: Acute Assessment and Plan: Continue home Claritin (5) Elevated temperature: Code(s): R50.9 - Fever, unspecified Status: Acute Assessment and Plan: Temp this am is 36.3C Blood culture show no growth Known infection in foot Tylenol PRN for high fevers (6) Leukocytosis: Qualifiers: Leukocytosis type: unspecified Qualified Code(s): D72.829 - Elevated white blood cell count, unspecified Code(s): D72.829 - Elevated white blood cell count, unspecified Status: Acute Assessment and Plan: white blood cell count at admission was 22.9 white blood cell count trending down and 5.1 today known source of infection of the right foot IV antibiotics blood cultures NGTD trend labs labs in a.m. (7) Back spasm: Code(s): M62.830 - Muscle spasm of back Status: Acute Assessment and Plan: Seems to be remedied at this time patient is using more pillows and stated that pain is better especially the shoulder blade and the hip. Flexiril added 5mg PO Q8HR prn (8) Hypertension: Code(s): I10 - Essential (primary) hypertension Status: Acute Assessment and Plan: Last blood pressure was 145/95 Probably for postsurgical pain Lisinopril 5mg PO daily Hydralazine 10mg IV Q4hr PRN Trend blood pressure Adjust medications as needed (9) Peripheral vascular disease: Code(s): I73.9 - Peripheral vascular disease, unspecified Status: Acute Assessment and Plan: Arterial Doppler show Decreased TBIs and normal ABIs, consistent with arterial occlusive disease. venous Doppler showed no thrombosis monitor (10) Elevated liver enzymes: Code(s): R74.8 - Abnormal levels of other serum enzymes Status: Acute Assessment and Plan: ALT tren
[2021-08-21 14:00] VITALS: BP 140/88; PULSE 93; RESP 18; TEMP 36.7; O2SAT 97
[2021-08-21 20:42] VITALS: PULSE 93; RESP 18; O2SAT 97
[2021-08-21 22:00] VITALS: BP 156/97; PULSE 86; RESP 18; TEMP 36.6; O2SAT 96
[2021-08-22 06:00] VITALS: BP 160/92; PULSE 90; RESP 18; TEMP 36.2; O2SAT 97
[2021-08-22] MEDS: lisinopriL 5 MG TABLET PO ×2 (08:41→14:30)
[2021-08-22] MEDS: SACCHAROMYCES BOULARDII 250 MG CAPSULE PO ×2 (08:41→17:34)
[2021-08-22] MEDS: LORATADINE 10 MG TABLET PO (08:41)
[2021-08-22] MEDS: ENOXAPARIN 40 MG/0.4 ML SYRINGE SUB-Q (08:41)
--- NOTE | 2021-08-22 10:54 | WPDINFPN2 ---
Subjective Date/time seen: 08/22/21 10:54 Interval history: Patient not seen, path is still pending. Cultures noted. Continue current Rx, need above resulted to finalize plan. Objective Data Vital Signs Vital Signs: Vital Signs - 24 hr 08/21/21 14:00 08/21/21 20:42 08/21/21 22:00 Temperature 36.7 C 36.6 C Pulse Rate 93 93 86 Respiratory Rate 18 18 18 Blood Pressure 140/88 156/97 H Pulse Oximetry 97 97 96 08/22/21 06:00 Temperature 36.2 C L Pulse Rate 90 Respiratory Rate 18 Blood Pressure 160/92 H Pulse Oximetry 97 Intake/Output Intake/Output: Intake & Output 08/19/21 08/20/21 08/21/21 08/22/21 23:59 23:59 23:59 23:59 Intake Total 1970 2620 2820 660 Output Total 1150 1750 2225 1050 Balance 820 870 595 -390 Meds/Results Medications: Active Medications Generic Name Dose Route Start Last Admin Trade Name Freq PRN Reason Stop Dose Admin Acetaminophen 1,000 mg 08/16/21 17:43 08/20/21 21:03 Acetaminophen 500 Mg Tablet PO 1,000 mg Q6H PRN Administration Mild Pain (1-3) or Fever Albuterol 2.5 mg 08/16/21 00:16 08/16/21 00:52 Albuterol Sulfate Neb 2.5 Mg/3 Ml Inh INHALATION 2.5 mg Q6HRT PRN Administration Shortness Of Breath Benzonatate 200 mg 08/16/21 00:16 Benzonatate 100 Mg Capsule PO Q4HR PRN Cough Cyclobenzaprine HCl 5 mg 08/17/21 15:10 08/20/21 21:03 Cyclobenzaprine Hcl 5 Mg Tablet PO 5 mg Q8H PRN Administration Muscle Spasm Enoxaparin Sodium 40 mg 08/16/21 09:00 08/22/21 08:41 Enoxaparin 40 Mg/0.4 Ml Syringe SUB-Q 40 mg DAILY MARIA ANTONIA Administration Hydralazine HCl 10 mg 08/17/21 15:21 Hydralazine Hcl 20 Mg/Ml Vial IV PUSH Q4HR PRN Blood Pressure - High Ceftriaxone Sodium 2 gm in 100 mls @ 200 mls/hr 08/18/21 13:00 08/22/21 08:40 Rocephin 2 Gm/D5w 100 Ml IVPB 100 mls/hr QAM MARIA ANTONIA Administration Lisinopril 5 mg 08/20/21 09:00 08/22/21 08:41 Lisinopril 5 Mg Tablet PO 5 mg QAM MARIA ANTONIA Administration Loratadine 10 mg 08/16/21 09:00 08/22/21 08:41 Loratadine 10 Mg Tablet PO 10 mg QAM MARIA ANTONIA Administration Morphine Sulfate 4 mg 08/15/21 19:10 Morphine Sulfate (*Crx) 4 Mg/Ml Inj IV PUSH Q2H PRN Pain Rated 7-10 Ondansetron HCl 4 mg 08/15/21 19:10 Ondansetron Inj 4 Mg/2 Ml Vial IV PUSH Q4H PRN Nausea Saccharomyces Boulardii 250 mg 08/18/21 09:00 08/22/21 08:41 Saccharomyces Boulardii 250 Mg Capsule PO 250 mg BID MARIA ANTONIA Administration Radiology Results: ITS Impressions Chest X-Ray 08/15/21 17:46 IMPRESSION: 1. No acute cardiopulmonary disease. Foot X-Ray 08/15/21 17:46 IMPRESSION: 1. Cortical erosions at the head of the fifth metatarsal and base of the fifth proximal phalanx with surrounding soft tissue gas and swelling suspicious for osteomyelitis. Venous Doppler Study 08/16/21 08:21 IMPRESSION: 1. No right lower extremity deep venous thrombosis. Foot MRI 08/16/21 15:18 IMPRESSION: 1. Osteomyelitis of the head and neck of the fifth metatarsal and less advanced at the base of the fifth proximal phalanx. 2. Minimal marrow edema at the head of the fourth metatarsal and favor reactive edema over additional very early osteomyelitis. Intraoperative X-Ray 08/17/21 13:42 IMPRESSION: Fluoroscopy used during right foot surgery. Doppler Study Ultrasound 08/18/21 14:21 IMPRESSION: 1. Decreased TBIs and normal ABIs, consistent with arterial occlusive disease.
--- NOTE | 2021-08-22 12:59 | P.PNIM_ITS ---
Progress Note: A&P Assessment and Plan (1) Acute osteomyelitis of right foot: Code(s): M86.171 - Other acute osteomyelitis, right ankle and foot Status: Inactive Assessment and Plan: * worsening wound on his right lateral foot * MRI 08/16/21 osteomyelitis of the head of the 5th metatarsal and the base of the 5th proximal phalanx. * Foot xray showed probable osteomyelitis 08/15/21 * Rocephin 2 g q.day day 5 * Wound cultures show ISOLATE 1:Peptostreptococcus anaerobiua ISOLATE 2:Prevotella bivia * Blood cultures NGTD * Dr. Bentley, podiatry, DC instructions--Follow up 3 days post DC, minimal wt. bearing, Showers with cast protection * Surgical procedure 08/17/2021 * Continue to monitor * ID consult thank for recommendations * PT and OT resumed * Home health requested for dressing changes with 1/4 iodoform gauze, 4x4 gauze, Kerlix and TAMERA wrap to be changed 3x week, sister and friend both RNs will change the dressing the remaining days. * Sister has came here to view and assist with dressing changes * Can be discharged will wait for ID antibiotic recommendations. (2) Sepsis: Qualifiers: Sepsis acute organ dysfunction status: without acute organ dysfunction Sepsis type: sepsis due to unspecified organism Qualified Code(s): A41.9 - Sepsis, unspecified organism Code(s): A41.9 - Sepsis, unspecified organism Status: Inactive Assessment and Plan: * seems to be resolved at this time * Meets sepsis criteria with tachycardia and leukocytosis in the setting of underlying infection of the right foot. * Lactic acid levels within normal limits. * Blood pressures are stable. * Wound culture shows skin cells * blood cultures NGTD repeated * IV antibiotics * With blood cell count 5.1 today * Trend labs * Labs in a.m. (3) Cellulitis of foot, right: Code(s): L03.115 - Cellulitis of right lower limb Status: Acute Assessment and Plan: * See above (4) Allergies: Code(s): T78.40XA - Allergy, unspecified, initial encounter Status: Acute Assessment and Plan: * Continue home Claritin (5) Elevated temperature: Code(s): R50.9 - Fever, unspecified Status: Acute Assessment and Plan: * Temp this am is 36.3C * Blood culture show no growth * Known infection in foot * Tylenol PRN for high fevers (6) Leukocytosis: Qualifiers: Leukocytosis type: unspecified Qualified Code(s): D72.829 - Elevated white blood cell count, unspecified Code(s): D72.829 - Elevated white blood cell count, unspecified Status: Acute Assessment and Plan: * white blood cell count at admission was 22.9 * white blood cell count trending down and 5.1 today * known source of infection of the right foot * IV antibiotics * blood cultures NGTD * trend labs * labs in a.m. (7) Back spasm: Code(s): M62.830 - Muscle spasm of back Status: Acute Assessment and Plan: * Seems to be remedied at this time * patient is using more pillows and stated that pain is better especially the shoulder blade and the hip. * Flexiril added 5mg PO Q8HR prn (8) Hypertension: Code(s): I10 - Essential (primary) hypertension Status: Acute Assessment and Plan: * Last blood pressure was 160/92 * Probably for postsurgical pain * Lisinopril 10mg PO daily
--- NOTE | 2021-08-22 12:59 | PM.IMPN ---
Progress Note: A&P Assessment and Plan (1) Acute osteomyelitis of right foot: Code(s): M86.171 - Other acute osteomyelitis, right ankle and foot Status: Inactive Assessment and Plan: worsening wound on his right lateral foot MRI 08/16/21 osteomyelitis of the head of the 5th metatarsal and the base of the 5th proximal phalanx. Foot xray showed probable osteomyelitis 08/15/21 Rocephin 2 g q.day day 5 Wound cultures show ISOLATE 1:Peptostreptococcus anaerobiua ISOLATE 2:Prevotella bivia Blood cultures NGTD Dr. Bentley, podiatry, DC instructions--Follow up 3 days post DC, minimal wt. bearing, Showers with cast protection Surgical procedure 08/17/2021 Continue to monitor ID consult thank for recommendations PT and OT resumed Home health requested for dressing changes with 1/4 iodoform gauze, 4x4 gauze, Kerlix and TAMERA wrap to be changed 3x week, sister and friend both RNs will change the dressing the remaining days. Sister has came here to view and assist with dressing changes Can be discharged will wait for ID antibiotic recommendations. (2) Sepsis: Qualifiers: Sepsis acute organ dysfunction status: without acute organ dysfunction Sepsis type: sepsis due to unspecified organism Qualified Code(s): A41.9 - Sepsis, unspecified organism Code(s): A41.9 - Sepsis, unspecified organism Status: Inactive Assessment and Plan: seems to be resolved at this time Meets sepsis criteria with tachycardia and leukocytosis in the setting of underlying infection of the right foot. Lactic acid levels within normal limits. Blood pressures are stable. Wound culture shows skin cells blood cultures NGTD repeated IV antibiotics With blood cell count 5.1 today Trend labs Labs in a.m. (3) Cellulitis of foot, right: Code(s): L03.115 - Cellulitis of right lower limb Status: Acute Assessment and Plan: See above (4) Allergies: Code(s): T78.40XA - Allergy, unspecified, initial encounter Status: Acute Assessment and Plan: Continue home Claritin (5) Elevated temperature: Code(s): R50.9 - Fever, unspecified Status: Acute Assessment and Plan: Temp this am is 36.3C Blood culture show no growth Known infection in foot Tylenol PRN for high fevers (6) Leukocytosis: Qualifiers: Leukocytosis type: unspecified Qualified Code(s): D72.829 - Elevated white blood cell count, unspecified Code(s): D72.829 - Elevated white blood cell count, unspecified Status: Acute Assessment and Plan: white blood cell count at admission was 22.9 white blood cell count trending down and 5.1 today known source of infection of the right foot IV antibiotics blood cultures NGTD trend labs labs in a.m. (7) Back spasm: Code(s): M62.830 - Muscle spasm of back Status: Acute Assessment and Plan: Seems to be remedied at this time patient is using more pillows and stated that pain is better especially the shoulder blade and the hip. Flexiril added 5mg PO Q8HR prn (8) Hypertension: Code(s): I10 - Essential (primary) hypertension Status: Acute Assessment and Plan: Last blood pressure was 160/92 Probably for postsurgical pain Lisinopril 10mg PO daily Hydralazine 10mg IV Q4hr PRN Trend blood pressure Adjust medications as needed (9) Peripheral vascular disease: Code(s): I73.9 - Peripheral vascular disease, unspecified Status: Acute Assessment and Plan: Arterial Doppler show Decreased TBIs and normal ABIs, consistent with arterial occlusive disease. venous Doppler showed no thrombosis monitor (10) Elevated liver enzymes: Code(s): R74.8 - Abnormal levels of other serum enzymes Status: Acute Assessment and Plan: ALT trending up ALT
[2021-08-22 14:00] VITALS: BP 144/91; PULSE 105; RESP 16; TEMP 36.8; O2SAT 97
--- NOTE | 2021-08-22 14:38 | PCNWS ---
Weekly nutritional screen. Patient is tolerating current diet with adequate intake. No weight loss reported. No nutritional needs at this time.
[2021-08-22 20:00] VITALS: PULSE 88; RESP 16; O2SAT 97
[2021-08-22 22:00] VITALS: BP 139/90; PULSE 88; RESP 16; TEMP 37.2; O2SAT 97
[2021-08-23 06:00] VITALS: BP 165/94; PULSE 88; RESP 18; TEMP 36.4; O2SAT 98
[2021-08-23] MEDS: lisinopriL 10 MG TABLET PO (06:16)
[2021-08-23] MEDS: LORATADINE 10 MG TABLET PO (08:17)
[2021-08-23] MEDS: SACCHAROMYCES BOULARDII 250 MG CAPSULE PO ×2 (08:17→17:08)
[2021-08-23] MEDS: ENOXAPARIN 40 MG/0.4 ML SYRINGE SUB-Q (08:17)
[2021-08-23 08:30] VITALS: PULSE 92; RESP 18; O2SAT 97
[2021-08-23 14:00] VITALS: BP 143/99; PULSE 100; RESP 18; TEMP 37.3; O2SAT 97
--- NOTE | 2021-08-23 15:11 | PC.NURSE ---
On 08/23/21, the student, [ Danielle Beckwith], provided care and completed [facility] documentation on this patient. I have reviewed the student's documentation and agree with the findings.
--- NOTE | 2021-08-23 16:39 | P.PNIM_ITS ---
Progress Note: A&P Assessment and Plan (1) Acute osteomyelitis of right foot: Code(s): M86.171 - Other acute osteomyelitis, right ankle and foot Status: Inactive Assessment and Plan: * worsening wound on his right lateral foot * MRI 08/16/21 osteomyelitis of the head of the 5th metatarsal and the base of the 5th proximal phalanx. * Foot xray showed probable osteomyelitis 08/15/21 * Rocephin 2 g q.day day #5 * Wound cultures show ISOLATE 1:Peptostreptococcus anaerobiua ISOLATE 2:Prevotella bivia * Blood cultures NGTD * Dr. Bentley, podiatry, DC instructions--Follow up 3 days post DC, minimal wt. bearing, Showers with cast protection * Surgical procedure 08/17/2021 * Continue to monitor * ID consult thank for recommendations * PT and OT resumed * Home health requested for dressing changes with 1/4 iodoform gauze, 4x4 gauze, Kerlix and TAMERA wrap to be changed 3x week, sister and friend both RNs will change the dressing the remaining days. * Sister has came here to view and assist with dressing changes * ID would like 42 days total of IV Ceftriaxone 2 g daily at 1300 (Day #6) (2) Sepsis: Qualifiers: Sepsis acute organ dysfunction status: without acute organ dysfunction Sepsis type: sepsis due to unspecified organism Qualified Code(s): A41.9 - Se psis, unspecified organism Code(s): A41.9 - Sepsis, unspecified organism Status: Inactive Assessment and Plan: * seems to be resolved at this time * Meets sepsis criteria with tachycardia and leukocytosis in the setting of underlying infection of the right foot. * Lactic acid levels within normal limits. * Blood pressures are stable. * Wound culture shows skin cells * blood cultures NGTD repeated * IV antibiotics (3) Cellulitis of foot, right: Code(s): L03.115 - Cellulitis of right lower limb Status: Acute Assessment and Plan: * See above (4) Leukocytosis: Qualifiers: Leukocytosis type: unspecified Qualified Code(s): D72.829 - Elevated white blood cell count, unspecified Code(s): D72.829 - Elevated white blood cell count, unspecified Status: Acute Assessment and Plan: * white blood cell count at admission was 22.9 * white blood cell count trending down to normal with IV Abx. (5) Back spasm: Code(s): M62.830 - Muscle spasm of back Status: Acute Assessment and Plan: * Seems to be remedied at this time * patient is using more pillows and stated that pain is better especially the shoulder blade and the hip. * Flexeril added 5mg PO Q8HR prn (6) Hypertension: Code(s): I10 - Essential (primary) hypertension Status: Acute Assessment and Plan: * Last blood pressure was 143/99 * Lisinopril 10mg PO daily * Hydralazine 10mg IV Q4hr PRN * Trend blood pressure * Adjust medications as needed (7) Peripheral vascular disease: Code(s): I73.9 - Peripheral vascular disease, unspecified Status: Acute Assessment and Plan: * Arterial Doppler show Decreased TBIs and normal ABIs, consistent with arterial occlusive disease. * venous Doppler showed no thrombosis * monitor (8) Elevated liver enzymes: Code(s): R74.8 - Abnormal levels of other serum enzymes Status: Acute Assessment and Plan: * hepatitis panel negative, will recheck tomorrow.
--- NOTE | 2021-08-23 16:39 | PM.IMPN ---
Progress Note: A&P Assessment and Plan (1) Acute osteomyelitis of right foot: Code(s): M86.171 - Other acute osteomyelitis, right ankle and foot Status: Inactive Assessment and Plan: worsening wound on his right lateral foot MRI 08/16/21 osteomyelitis of the head of the 5th metatarsal and the base of the 5th proximal phalanx. Foot xray showed probable osteomyelitis 08/15/21 Rocephin 2 g q.day day #5 Wound cultures show ISOLATE 1:Peptostreptococcus anaerobiua ISOLATE 2:Prevotella bivia Blood cultures NGTD Dr. Bentley, podiatry, DC instructions--Follow up 3 days post DC, minimal wt. bearing, Showers with cast protection Surgical procedure 08/17/2021 Continue to monitor ID consult thank for recommendations PT and OT resumed Home health requested for dressing changes with 1/4 iodoform gauze, 4x4 gauze, Kerlix and TAMERA wrap to be changed 3x week, sister and friend both RNs will change the dressing the remaining days. Sister has came here to view and assist with dressing changes ID would like 42 days total of IV Ceftriaxone 2 g daily at 1300 (Day #6) (2) Sepsis: Qualifiers: Sepsis acute organ dysfunction status: without acute organ dysfunction Sepsis type: sepsis due to unspecified organism Qualified Code(s): A41.9 - Sepsis, unspecified organism Code(s): A41.9 - Sepsis, unspecified organism Status: Inactive Assessment and Plan: seems to be resolved at this time Meets sepsis criteria with tachycardia and leukocytosis in the setting of underlying infection of the right foot. Lactic acid levels within normal limits. Blood pressures are stable. Wound culture shows skin cells blood cultures NGTD repeated IV antibiotics (3) Cellulitis of foot, right: Code(s): L03.115 - Cellulitis of right lower limb Status: Acute Assessment and Plan: See above (4) Leukocytosis: Qualifiers: Leukocytosis type: unspecified Qualified Code(s): D72.829 - Elevated white blood cell count, unspecified Code(s): D72.829 - Elevated white blood cell count, unspecified Status: Acute Assessment and Plan: white blood cell count at admission was 22.9 white blood cell count trending down to normal with IV Abx. (5) Back spasm: Code(s): M62.830 - Muscle spasm of back Status: Acute Assessment and Plan: Seems to be remedied at this time patient is using more pillows and stated that pain is better especially the shoulder blade and the hip. Flexeril added 5mg PO Q8HR prn (6) Hypertension: Code(s): I10 - Essential (primary) hypertension Status: Acute Assessment and Plan: Last blood pressure was 143/99 Lisinopril 10mg PO daily Hydralazine 10mg IV Q4hr PRN Trend blood pressure Adjust medications as needed (7) Peripheral vascular disease: Code(s): I73.9 - Peripheral vascular disease, unspecified Status: Acute Assessment and Plan: Arterial Doppler show Decreased TBIs and normal ABIs, consistent with arterial occlusive disease. venous Doppler showed no thrombosis monitor (8) Elevated liver enzymes: Code(s): R74.8 - Abnormal levels of other serum enzymes Status: Acute Assessment and Plan: hepatitis panel negative, will recheck tomorrow. Additional Plan Time Spent With Patient Time with patient: 25 - 35 minutes Subjective Date/time seen: 08/23/21 16:39 Interval history: Patient is a 51-year-old male who is here for osteomyelitis of the right foot. Date of service 08/23/2021: The patient reports feeling well. He is Not having any pain, fevers, chills. He is ready to be discharged home as soon as possible. He will have help from his family once he gets home. Denies any chest pain, shortness of breath, cough, nausea, abdominal pain, constipation, leg swelling, calf
[2021-08-23] MEDS: CYCLOBENZAPRINE HCL 5 MG TABLET PO (19:59)
[2021-08-23] MEDS: ACETAMINOPHEN 500 MG TABLET 1000 MG PO (19:59)
[2021-08-23 20:00] VITALS: PULSE 100; RESP 18; O2SAT 97
[2021-08-23 21:14] VITALS: O2SAT 94
[2021-08-23 22:00] VITALS: BP 134/83; PULSE 82; RESP 20; TEMP 36.6; O2SAT 94
[2021-08-24 06:00] VITALS: BP 144/84; PULSE 74; RESP 18; TEMP 36.2; O2SAT 97
[2021-08-24 06:35] LABS: Hematocrit 44.3 % (42.0-52.0); Hemoglobin 14.9 g/dL (14.0-18.0); Mean Corpuscular HGB Conc 33.6 g/dl (32-36); Mean Corpuscular Hemoglobin 30.5 pg (26-34); Mean Corpuscular Volume 90.8 fl (80-100); Mean Platelet Volume 10.1 fl (7.4-10.4); Platelet Count Result 169 k/mm3 (150-375); Red Blood Count 4.88 M/mm3 (4.6-6.20); Red Cell Distribution Width 12.2 % (11.5-14.5); White Blood Count 6.3 K/mm3 (4.5-10.0)
[2021-08-24 06:56] LABS: Prothrombin Time 13.5 Seconds (11.1-14.7)
[2021-08-24 06:57] LABS: Partial Thromboplastin Time 28.6 SECONDS (22.3-36.8)
[2021-08-24 06:59] LABS: Alanine Aminotransferase 65 U/L (4-50); Albumin Level 3.7 g/dL (3.5-5.1); Alkaline Phosphatase 80 U/L (38-126); Anion Gap 8 mmol/L (8-16); Aspartate Amino Transferase 33 U/L (17-59); Bilirubin,Total 0.4 mg/dL (0.2-1.3); Blood Urea Nitrogen 12 mg/dL (9-20); CRP 1.2 mg/dL (<1.0); Carbon Dioxide 28 mmol/L (22-30); Chloride 104 mmol/L (98-107); Estimated CRCL calculation 112 ml/min; Estimated Glomerular Filt Rate > 60; Glucose 97 mg/dL (65-110); Potassium 4.2 mmol/L (3.4-5.0); Sodium 140 mmol/L (137-145)
[2021-08-24] MEDS: SACCHAROMYCES BOULARDII 250 MG CAPSULE PO (09:38)
[2021-08-24] MEDS: ENOXAPARIN 40 MG/0.4 ML SYRINGE SUB-Q (09:38)
[2021-08-24] MEDS: LORATADINE 10 MG TABLET PO (09:39)
[2021-08-24] MEDS: lisinopriL 10 MG TABLET PO (09:39)
--- NOTE | 2021-08-24 13:20 | WPDPN ---
Progress Note: A&P Additional Plan Septic fifth metatarsal phalangeal joint right foot with osteomyelitis- Continue with abx per ID appreciate help with case Continue with local wound care packing of the dorsal wound with Iodoform gauze 1/4 4x4 gauze, 4 Kelix and TAMERA Wrap changed daily Plantar wound nearly fulled healed. The dorsal wound is healing and granulating nicely. No continued signs of infection Follow up 3 days after discharged Subjective Date/time seen: 08/24/21 13:20 Patient seen at bedside resting comfortably. No F/C/N/V. Using surgical shoe for ambulation. No foot pain. Exam Extrem: Left lower extremity: foot Other: Plantar wound clemencia nicely nearly fulled healed. Dorsal wound is granular, there is complete resolution of edema and erythema to the wound. Objective Data Vital Signs Vital Signs: Vital Signs - 24 hr 08/23/21 14:00 08/23/21 20:00 08/23/21 21:14 Temperature 37.3 C Pulse Rate 100 100 Respiratory Rate 18 18 Blood Pressure 143/99 H Pulse Oximetry 97 97 94 08/23/21 22:00 08/24/21 06:00 Temperature 36.6 C 36.2 C L Pulse Rate 82 74 Respiratory Rate 20 18 Blood Pressure 134/83 144/84 H Pulse Oximetry 94 97 Intake/Output Intake/Output: Intake & Output 08/21/21 08/22/21 08/23/21 08/24/21 23:59 23:59 23:59 23:59 Intake Total 2820 2820 3830 910 Output Total 2225 2100 Balance 465 565 8787 910 Meds/Results Medications: Active Medications Generic Name Dose Route Start Last Admin Trade Name Freq PRN Reason Stop Dose Admin Acetaminophen 1,000 mg 08/16/21 17:43 08/23/21 19:59 Acetaminophen 500 Mg Tablet PO 1,000 mg Q6H PRN Administration Mild Pain (1-3) or Fever Albuterol 2.5 mg 08/16/21 00:16 08/16/21 00:52 Albuterol Sulfate Neb 2.5 Mg/3 Ml Inh INHALATION 2.5 mg Q6HRT PRN Administration Shortness Of Breath Benzonatate 200 mg 08/16/21 00:16 Benzonatate 100 Mg Capsule PO Q4HR PRN Cough Cyclobenzaprine HCl 5 mg 08/17/21 15:10 08/23/21 19:59 Cyclobenzaprine Hcl 5 Mg Tablet PO 5 mg Q8H PRN Administration Muscle Spasm Enoxaparin Sodium 40 mg 08/16/21 09:00 08/24/21 09:38 Enoxaparin 40 Mg/0.4 Ml Syringe SUB-Q 40 mg DAILY MARIA ANTONIA Administration Hydralazine HCl 10 mg 08/17/21 15:21 Hydralazine Hcl 20 Mg/Ml Vial IV PUSH Q4HR PRN Blood Pressure - High Ceftriaxone Sodium 2 gm in 100 mls @ 200 mls/hr 08/18/21 13:00 08/24/21 10:26 Rocephin 2 Gm/D5w 100 Ml IVPB Infused QAM [facility] Infusion Lisinopril 10 mg 08/23/21 09:00 08/24/21 09:39 Lisinopril 10 Mg Tablet PO 10 mg QAM MARIA ANTONIA Administration Loratadine 10 mg 08/16/21 09:00 08/24/21 09:39 Loratadine 10 Mg Tablet PO 10 mg QAM MARIA NATONIA Administration Morphine Sulfate 4 mg 08/15/21 19:10 Morphine Sulfate (*Crx) 4 Mg/Ml Inj IV PUSH Q2H PRN Pain Rated 7-10 Ondansetron HCl 4 mg 08/15/21 19:10 Ondansetron Inj 4 Mg/2 Ml Vial IV PUSH Q4H PRN Nausea Saccharomyces Boulardii 250 mg 08/18/21 09:00 08/24/21 09:38 Saccharomyces Boulardii 250 Mg Capsule PO 250 mg BID MARIA ANTONIA Administration Sodium Chloride 10 ml 08/24/21 14:00 Central Line Flush IV PUSH Q8HR MARIA ANTONIA Sodium Chloride 10 ml 08/24/21 13:00 Central Line Flush IV PUSH PRN PRN with TPN bag changes Sodium Chloride 20 ml 08/24/21 13:00 Central Line Flush IV PUSH PRN PRN after blood draws Radiology Results: ITS Impressions Foot X-Ray 08/15/21 17:46 IMPRESSION: 1. Cortical erosions at the head of the fifth metatarsal and base of the fifth proximal phalanx with surrounding soft tissue gas and swelling suspicious for osteomyelitis. Venous Doppler Study 08/16/21 08:21 IMPRESSION: 1. No right lower extremity deep venous thrombosis. Foot MRI 08/16/21 15:18 IMPRESSION: 1. Osteomyelitis of the head and neck of the fifth metatarsal and less advanced at the base of th
[2021-08-24 14:00] VITALS: BP 124/79; PULSE 100; RESP 16; TEMP 36.8; O2SAT 96
[2021-08-24] MEDS: CENTRAL LINE FLUSH 10 ML IV PUSH (15:10)
--- NOTE | 2021-08-24 16:21 | PM.DS ---
DS: Admitting Diagnosis Discharge Date 08/24/21 Admitting Diagnosis Dizziness, foot wound DS: Discharge Diagnosis Discharge Diagnosis (1) Acute osteomyelitis of right foot: Code(s): M86.171 - Other acute osteomyelitis, right ankle and foot Status: Inactive Assessment and Plan: The patient is a 51-year-old male with no significant medical history who presented to the emergency department earlier today for evaluation of lightheadedness. He was in his usual state of health when he got up this morning and sometime this afternoon while at work he suddenly started to feel bad with generalized malaise and dizziness as though he may pass out and palpitations. He decided to come to the ER for further evaluation. He was afebrile on arrival to the emergency department, but was found to be tachycardic, and had a white blood cell count of 22,900. With further questioning he does mention having a wound on his right foot that has been present for several months. He does not recall exactly what happened to it but he thinks it was due to a previous job he had where he was on his feet working for 12 hours a day which caused him to developed a callus which ?split.? He has been keeping the wound clean and has been applying Neosporin daily with reported improvement although over the last 3 days or so he has developed redness and swelling as well as increased drainage. X-ray of the foot showed erosions of the 5th metatarsal head and the base of the 5th proximal phalanx with surrounding soft tissue gas and swelling suspicious for osteomyelitis. The patient was admitted to the hospital with IV antibiotics for treatment of wound infection of the foot and sepsis. Podiatry was consulted and evaluated the patient. MRI indicates osteomyelitis of distal fifth metatarsal possibly involving proximal phalanx. The patient was taken to the OR with Dr. Bentley for Partial distal fifth metatasal resection right foot on 08/17/21 which he tolerated well. Wound culture greww ISOLATE 1: Peptostreptococcus anaerobiua ISOLATE 2:Prevotella bivia. Blood cultures NGTD. Infectious Disease was consulted and recommended IV ceftriaxone 2 g Q 24 hours for a total of 42 days. A PICC line was placed. The patient will continue IV antibiotics at home and be followed by home health. The patient did not have a primary care provider but we have set him up with Dr. Downing at [facility] in [place], [place] on Aug 29 at 10 am for further evaluation and monitoring of his wound. He was also given information to follow-up with Dr. Bentley, podiatry, in 3 days and his discharge instructions: minimal wt. bearing, Showers with cast protection. Home health requested for dressing changes with 1/4 iodoform gauze, 4x4 gauze, Kerlix and TAMERA wrap to be changed 3x week, sister and friend both RNs will change the dressing the remaining days. Patient understands and agrees the plan all questions answered. Patient feels comfortable being discharged home at this time and the plans for discharge. Questions answered. (2) Sepsis: Qualifiers: Sepsis acute organ dysfunction status: without acute organ dysfunction Sepsis type: sepsis due to unspecified organism Qualified Code(s): A41.9 - Sepsis, unspecified organism Code(s): A41.9 - Sepsis, unspecified organism Status: Inactive Assessment and Plan: (3) Cellulitis of foot, right: Code(s): L03.115 - Cellulitis of right lower limb Status: Acute Assessment and Plan: (4) Leukocytosis: Qualifiers: Leukocytosis type: unspecified Qualified Code(s): D72.829 - Elevated white blood cell count, unspecified Code(s): D72.829 - Elevated white blood cell count, unspecified Status: Acute Assessment and Plan: (5) Back spasm: Code(s): M62.830 - Muscle spasm of back Status: Acute Assessment and Plan: (6) Hypertension:
== END 2021-08-24 15:40 | disposition home health service (06) | DRG 710 ==
LOC: ANHED 19:10 → ANH3MEDSUR 20:22
PROVIDERS: Nurse Practitioner; Physician Assistant; Podiatrist Foot & Ankle Surgery; Admitting Provider Internal Medicine; Emergency Provider Emergency Medicine; Visit Provider Physician Assistant
PROC: 0QBN0ZZ Excision of Right Metatarsal, Open Approach (ICD-10-PCS; CPT 28104; principal; 2021-08-17 12:30)
DX: A41.9 Sepsis, unspecified organism (principal); M86.171 Other acute osteomyelitis, right ankle and foot; L03.115 Cellulitis of right lower limb; B95.4 Other streptococcus as the cause of diseases classified elsewhere; B96.89 Other specified bacterial agents as the cause of diseases classified elsewhere; M00.9 Pyogenic arthritis, unspecified; M62.830 Muscle spasm of back; I73.9 Peripheral vascular disease, unspecified; I10 Essential (primary) hypertension; R74.8 Abnormal levels of other serum enzymes; T78.40XA Allergy, unspecified, initial encounter; X58.XXXA Exposure to other specified factors, initial encounter; Z87.891 Personal history of nicotine dependence; Z88.0 Allergy status to penicillin
CPT/HCPCS: 36415; 36569; 71045; 73630; 73718; 80048; 80053; 80074; 80202; 83605; 83615; 83735; 85025; 85027; 85055; 85610; 85652; 85730; 86140; 87040; 87070; 87075; 87076; 87185; 87205; 88305; 88311; 93005; 93923; 93971; 94640; 96365; 97161; 99285; A9270; C1751; J0692; J0696; J1650; J1956; J2250; J2704; J3010; J3370; J7030; J7120